=== PATIENT | female | born 1935 | race Hispanic/Latino ===

== ENCOUNTER 2018-04-11 13:35 | Inpatient (IN) | payer MEDICARE ==
[2018-04-11 13:47] VITALS: BMI 29.2
--- NOTE | 2018-04-11 14:29 | ED PDOC ---
HPI: Altered Mental Status Time Seen by Provider: 04/11/18 13:42 Chief Complaint (Nursing): Altered Mental Status Chief Complaint (Provider): Altered Mental Status History Per: Family Onset/Duration Of Symptoms: Unknown Current Symptoms Are (Timing): Still Present Description Of Symptoms: Not At Baseline Additional Complaint(s): 82 y/o female with a PMHx of HTN, CHF, COPD, Asthma, Bronchitis, Pneumonia, CKD, Emphysema and Gall Bladder Disease brought in by EMS from home where she lives alone for evaluation of an altered mental status, onset unknown. Patient is jackie cline visited by her nieces a few times a week. Family state they last visited her on Thursday when she appeared to be acting normally. Family report patient was seen by her PMD on Thursday at home and appeared normal. Family state one niece visited her earlier today and saw her sitting on the couch having wet herself and appeared to have a dry mouth and be confused. Family report that is not normal and patient was not at her baseline. Patient was brought here for further evaluation. The patient herself denies any complaints except having pain to her feet bilaterally. Patient normally has medicated patches of which she cuts her self and applies to the foot. Patient appeared awake, alert and is usually oriented to time. However, patient believed today was Thursday and she is unsure of what the year is. Family state that is new. Patient does however know who her PMD is and the name of her pharmacy. Patient appeared to have good buttermaker continuous churn memory. Otherwise, patient denies any other pain or symptoms including cough, shortness of breath and abdominal pain. PMD: Ishmael Ho Past Medical History Reviewed: Historical Data, Nursing Documentation, Vital Signs Vital Signs: Last Vital Signs Temp 99.4 F 04/11/18 13:46 Pulse 98 H 04/11/18 14:19 Resp 20 04/11/18 14:19 BP 135/68 04/11/18 14:19 Pulse Ox 98 04/11/18 14:19 - Medical History PMH: Arthritis, Asthma, Bronchitis, CHF, COPD, Emphysema, Gall Bladder Disease (cholecystectomy), HTN, Hypercholesterolemia, Pneumonia, Chronic Kidney Disease Denies: Alzheimer's Disease, Anemia, Anxiety, Bipolar Disorder, Cardia Arrhythmia, Crohn's Disease, Dementia, Depression, Diverticulitis, Fibromyalgia, Fractures, HIV, Hyperthyroidism, Hypothyroidism, Kidney Stones, Migraine, Mitral Valve Prolapse, Osteoporosis, Pancreatitis, Paranoia, Parkinson's Disease, Peripheral Edema, Post Traumatic Stress Disorder, Schizophrenia, Seizures, Sickle Cell Disease, Sexually Transmitted Disease, TIA Comment Only: Sleep Apnea (unsure) - Surgical History Surgical History: Appendectomy (unsure), Cholecystectomy Denies: Coronary Stent, Pacemaker - Family History Family History: States: No Known Family Hx - Home Medications Home Medications: Ambulatory Orders Medication Instructions Recorded Albuterol/Ipratropium [Duoneb 3 1 vial IH Q6H 12/23/17 mg/0.5 mg (3 ml) UD] Colchicine [Colcrys] 1 tab PO BID 12/23/17 Ergocalciferol [Drisdol 50,000 1 cap PO Q7D 12/23/17 Intl Units Cap] Esomeprazole Magnesium [Nexium] 1 cap PO DAILY 12/23/17 Fluticasone/Salmeterol 250/50 1 puff IH BID 12/23/17 [Advair Diskus 250/50] Nebivolol [Bystolic] 1 tab PO DAILY 12/23/17 Potassium Chloride [K-Dur 20 mEq 40 meq PO DAILY 12/23/17 ER Tab] hydroCHLOROthiazide [Hydrodiuril] 1 tab PO DAILY 12/23/17 Acetaminophen [Tylenol 325mg tab] 650 mg PO Q4H PRN 30 Days tab 12/28/17 Budesonide [Pulmicort Respules] 0.5 mg IH [id number] 30 Days neb 12/28/17 Ferrous Gluconate [Fergon] 324 mg PO TID 30 Days tab 12/28/17 Vitamin B Complex/Vit C/Folic 1 tab PO 0800 30 Days tab 12/28/17 [Nephro-Daniela] Diclofenac [Diclofenac Sodium] 25 mg PO DAILY 04/11/18 - Allergies Allergies/Adverse Reactions: Allergies Allergy/AdvReac Type Severity Reaction Status Date / Time shellfish derived Allergy RASH Verified 04/11/18 13:48 Sulfa (Sulfonamide Allergy ITCHING Verified 04/11/18 13:48 Antibiotics) Review of Systems ROS Statement: Except As Marked, All Systems Reviewed And Found Negative Respiratory: Negative for: Cough, Shortness of Breath Gastrointestinal: Negative for: Abdominal Pain Musculoskeletal: Positive for: Foot Pain (bilaterally). Negative for: Neck Pain, Shoulder Pain, Arm Pain, Back Pain, Hand Pain, Leg Pain Neurological: Positive for: Altered Mental Status Physical Exam - Reviewed Nursing Documentation Reviewed: Yes Vital Signs Reviewed: Yes - Physical Exam Appears: Positive for: No Acute Distress (odor - Due to patient wetting herself, urine smells like that of a UTI.) Head Exam: Positive for: ATRAUMATIC, NORMOCEPHALIC Skin: Positive for: Normal Color, Warm, Dry Eye Exam: Positive for: Normal appearance, EOMI, PERRL ENT: Positive for: Other (dry mucous membrane with dry secretions noted inside) Neck: Positive for: Normal, Painless ROM, Supple Cardiovascular/Chest: Positive for: Regular Rate, Rhythm. Negative for: Murmur Respiratory: Positive for: Other (tachypnea). Negative for: Respiratory Distress Gastrointestinal/Abdominal: Positive for: Normal Exam, Soft. Negative for: Tenderness Extremity: Positive for: Normal ROM, Other (motor strength equal in all extremit ies bilaterally) Neurologic/Psych: Positive for: Alert, Oriented. Negative for: Motor/Sensory Deficits - Laboratory Results Result Diagrams: 04/11/18 14:30 04/11/18 14:30 - ECG O2 Sat by Pulse Oximetry: 98 (RA) Pulse Ox Interpretation: Normal Medical Decision Making Medical Decision Making: Time: 1413 Impression: UTI causing dehydration and AMS Plan: -- VBG -- EKG -- CMP -- CBC with Differentials -- CXR Portable -- Sodium Chloride 0.9% IV 150 mls/hr -- Rocephin 1 gm Sodium Chloride 0.9% 100 ml IVPB -- Blood Culture -- Urine Culture -- Licensed Pharmacist -- IV Insertion -- Urinary Catheter Insertion -- Urinalysis Ishmael Ho HTN, CHF, COPD, Asthma, Bronchitis, Pneumonia, CKD, Emphysema and Gall Bladder Disease ___ Scribe Attestation: Documented by Ariela Boone, acting as a scribe for Nel Ashley MD. Provider Scribe Attestation: All medical record entries made by the Scribe were at my direction and personally dictated by me. I have reviewed the chart and agree that the record accurately reflects my personal performance of the history, physical exam, medical decision making, and the department course for this patient. I have also personally directed, reviewed, and agree with the discharge instructions and disposition. patient with evidence of infection (likely urinary) given the elevated WBC's and also dehydration. will admit. Disposition - Clinical Impression Clinical Impression: Altered mental status, Dehydration - Patient ED Disposition Is Patient to be Admitted: Yes Doctor Will See Patient In The: Hospital - Disposition Disposition: Transfer of Care Disposition Time: 15:10 Condition: FAIR Forms: [employer] (Angolan) - Pt Status Changed To: Hospital Disposition Of: Inpatient - Admit Certification Admit to Inpatient:: After my assessment, the patient will require hospitalization for at least two midnights. This is because of the severity of symptoms shown, intensity of services needed, and/or the medical risk in this pa tient being treated as an outpatient.
--- NOTE | 2018-04-11 14:35 | RAD ---
Date of service: 04/11/2018 HISTORY: Sepsis Patient COMPARISON: No prior. FINDINGS: LUNGS: No active pulmonary disease. PLEURA: No significant pleural effusion identified, no pneumothorax apparent. CARDIOVASCULAR: No atherosclerotic calcification present Normal. OSSEOUS STRUCTURES: No significant abnormalities. VISUALIZED UPPER ABDOMEN: Normal. OTHER FINDINGS: None. IMPRESSION: No active disease.
[2018-04-11] MEDS ORDERED: cefTRIAXone (Rocephin) 1 gm Inj ONE (14:44)
[2018-04-11 14:46] LABS: VENOUS BLOOD GAS BASE EXCESS 5.1 mmol/L (0.0-2.0); VENOUS BLOOD GAS PCO2 47 mmHg (40-60); VENOUS BLOOD GAS PO2 43 mm/Hg (30-55); VENOUS BLOOD PH 7.42 (7.32-7.43)
[2018-04-11] MEDS: Sodium Chloride 0.9% 1,000 ML IV SCH ×3 (14:48→21:06)
[2018-04-11 14:54] LABS: ALB/GLOB RATIO 0.9 (1.0-2.1); ALBUMIN 3.7 g/dL (3.5-5.0); CALCIUM 9.8 mg/dL (8.4-10.2)
[2018-04-11 14:55] LABS: BASO # 0.1 K/uL (0.0-0.2); BASO % 0.7 % (0.0-2.0); LYMPH # 2.5 K/uL (1.0-4.3); LYMPH % 12.7 % (20.0-40.0); MEAN CELL VOLUME 91.2 fl (81.0-99.0); MEAN CORPUSCULAR HEMOGLOBIN 30.4 pg (27.0-31.0); MEAN CORPUSCULAR HGB CONC 33.3 g/dL (33.0-37.0); MEAN PLATELET VOLUME 10.6 fl (7.2-11.7); MONO # 2.8 K/uL (0.0-0.8); NEUT # 14.4 K/uL (1.8-7.0); NEUT % 72.6 % (50.0-75.0); RBC 4.6 Mil/uL (3.80-5.20); RED CELL DISTRIBUTION WIDTH 15.3 % (11.5-14.5); WHITE BLOOD COUNT 19.9 K/uL (4.8-10.8)
[2018-04-11 15:08] LABS: URINE BILIRUBIN NEGATIVE (NEGATIVE); URINE CLARITY CLOUDY (Clear); URINE COLOR YELLOW (YELLOW); URINE GLUCOSE (UA) NEGATIVE (NEGATIVE)
[2018-04-11 15:09] LABS: URINE BLOOD NEGATIVE (NEGATIVE); URINE LEUKOCYTE ESTERASE LARGE Leu/uL (Negative); URINE PROTEIN 100 mg/dL (NEGATIVE)
[2018-04-11 15:10] LABS: SQUAMOUS EPITHIAL 1 /hpf (0-5); URINE BACTERIA FEW (<OCC)
--- NOTE | 2018-04-11 15:24 | CP.PCM.HP ---
<Gabbi Oneill - Last Filed: 04/11/18 17:14> History of Present Illness - History of Present Illness History of Present Illness: History obtained from chart, family not at bedside. Pt is an 82 yo F with PMH of Asthma, COPD, DM-II, Gout, GERD, HTN and CKD . Pt was found at home by niece this AM appeared to have altered mental status dry mouth and was incontinent/smelled like urine, pt lives alone, family last visited her Thursday and stated she was acting normally at that time. Pt reports she has foot pain and puts foam patches on her feet. Denies fever, chills, headaches, SOB, chest pain, N/V/D/C, dysuria. On evaluation in ED pt dehydrated AAO x2, no in acute distress code status: Spoke with next of kin over phone, pt is DNR/DNI PMH:Asthma, COPD, DM-II, Gout, GERD, CKD, HTN Allergies: Sulfa, Shellfish PSH: cholecystectomy, appendectomy, cataract removal Fam Hx: Denies relevant family hx Soc Hx: Denies tobacco/alcohol/illicits/IVDA PMD: Ishmael Ho ED:CBC leukopcytosi, elevated lactic acid Rocephin 1 gm, Blood Cx, Urine Cx, Plastic Manager, Urinary Catheter Insertion, U/A Present on Admission - Present on Admission Any Indicators Present on Admission: No History of DVT/PE: No History of Uncontrolled Diabetes: No Urinary Catheter: No Decubitus Ulcer Present: No Review of Systems - Review of Systems Systems not reviewed;Unavailable: Altered Mental Status - Genitourinary Genitourinary: Urinary Incontinence Past Patient History - Infectious Disease Hx of Infectious Diseases: None - Tetanus Immunizations Tetanus Immunization: Unknown - Past Social History Smoking Status: Former Smoker - CARDIAC Hx Cardia Arrhythmia: No Hx Congestive Heart Failure: Yes Hx Hypercholesterolemia: Yes Hx Hypertension: Yes Hx Mitral Valve Prolapse: No Hx Pacemaker: No Hx Peripheral Edema: No - PULMONARY Hx Asthma: Yes Hx Bronchitis: Yes Hx Chronic Obstructive Pulmonary Disease (COPD): Yes Hx Emphysema: Yes Hx Pneumonia: Yes Hx Sleep Apnea: (unsure) - NEUROLOGICAL Hx Alzheimer's Disease: No Hx Dementia: No Hx Migraine: No Hx Parkinson's Disease: No Hx Seizures: No Hx Transient Ischemic Attacks (TIA): No - HEENT Hx Cataracts: Yes (bilateral cataract extraction,august and september) - RENAL Hx Chronic Kidney Disease: Yes Hx Kidney Stones: No - ENDOCRINE/METABOLIC Hx Hyperthyroidism: No Hx Hypothyroidism: No - HEMATOLOGICAL/ONCOLOGICAL Hx Anemia: No Hx Human Immunodeficiency Virus (HIV): No Hx Sickle Cell Disease: No - INTEGUMENTARY Hx Dermatological Problems: No Hx Basil Cell: No Hx Eczema: No Hx Melanoma: No Hx Psoriasis: No Hx Squamous Cell: No - MUSCULOSKELETAL/RHEUMATOLOGICAL Hx Arthritis: Yes Hx Fractures: No Hx Osteoporosis: No - GASTROINTESTINAL Hx Crohn's Disease: No Hx Diverticulitis: No Hx Gall Bladder Disease: Yes (cholecystectomy) Hx Pancreatitis: No - GENITOURINARY/GYNECOLOGICAL Hx Sexually Transmitted Disorders: No - PSYCHIATRIC Hx Anxiety: No Hx Bipolar Disorder: No Hx Depression: No Hx Paranoia: No Hx Post Traumatic Stress Disorder: No Hx Schizophrenia: No - SURGICAL HISTORY Hx Appendectomy: Yes (unsure) Hx Cholecystectomy: Yes Hx Coronary Stent: No Meds Allergies/Adverse Reactions: Allergies Allergy/AdvReac Type Severity Reaction Status Date / Time shellfish derived Allergy RASH Verified 04/11/18 13:48 Sulfa (Sulfonamide Allergy ITCHING Verified 04/11/18 13:48 Antibiotics) Physical Exam - Constitutional Appears: Non-toxic, No Acute Distress, Confused - Head Exam Head Exam: ATRAUMATIC, NORMAL INSPECTION, NORMOCEPHALIC - Eye Exam Eye Exam: EOMI - ENT Exam ENT Exam: Mucous Membranes Dry - Respiratory Exam Respiratory Exam: Clear to Auscultation Bilateral. absent: Rales, Rhonchi, Wheezes - Cardiovascular Exam Cardiovascular Exam: Tachycardia, +S1, +S2 - GI/Abdominal Exam GI & Abdominal Exam: Normal Bowel Sounds, Soft. absent: Tenderness - Extremities Exam Extremities exam: Positive for: normal inspection (Wearing foam patches on feet B/L) - Back Exam Back exam: CVA tenderness (L). absent: CVA tenderness (R) - Neurological Exam Neurological exam: Alert (AAOx2) - Skin Skin Exam: Normal Color Results - Vital Signs Recent Vital Signs: Last Vital Signs Temp 99.4 F 04/11/18 13:46 Pulse 98 H 04/11/18 14:19 Resp 20 04/11/18 14:19 BP 135/68 04/11/18 14:19 Pulse Ox 98 04/11/18 15:11 - Labs Result Diagrams: 04/11/18 14:30 04/11/18 14:30 Labs: Laboratory Results - last 24 hr 04/11/18 04/11/18 04/11/18 14:30 14:30 14:30 WBC 19.9 H RBC 4.60 Hgb 14.0 Hct 42.0 MCV 91.2 MCH 30.4 MCHC 33.3 RDW 15.3 H Plt Count 173 MPV 10.6 Neut % (Auto) 72.6 Lymph % (Auto) 12.7 L [place] % (Auto) 14.0 H Eos % (Auto) 0.0 Baso % (Auto) 0.7 Neut # (Auto) 14.4 H Lymph # (Auto) 2.5 [place] # (Auto) 2.8 H Eos # (Auto) 0.0 Baso # (Auto) 0.1 pO2 VBG pH VBG pCO2 VBG HCO3 VBG Total CO2 VBG O2 Sat (Calc) VBG Base Excess VBG Potassium Glucose Lactate FiO2 Sodium 141 Potassium 3.4 L Chloride 97 L Carbon Dioxide 28 Anion Gap 19 BUN 30 H Creatinine 1.5 H Est GFR ( Amer) 40 Est GFR (Non-Af Amer) 33 Random Glucose 198 H Calcium 9.8 Total Bilirubin 1.6 H AST 22 ALT 9 Alkaline Phosphatase 117 Total Protein 7.8 Albumin 3.7 Globulin 4.1 H Albumin/Globulin Ratio 0.9 L Venous Blood Potassium Urine Color Yellow Urine Clarity Cloudy Urine pH 8.0 Ur Specific [place] 1.023 Urine Protein 100 Urine Glucose (UA) Negative Urine Ketones Trace Urine Blood Negative Urine Nitrate Negative Urine Bilirubin Negative Urine Urobilinogen 1.0 Ur Leukocyte Esterase Large Urine RBC (Auto) 3 Urine Microscopic WBC 642 H Ur Squamous Epith Cells 1 Urine Bacteria Few H 04/11/18 14:42 WBC RBC Hgb Hct MCV MCH MCHC RDW Plt Count MPV Neut % (Auto) Lymph % (Auto) [place]arton % (Auto) Eos % (Auto) Baso % (Auto) Neut # (Auto) Lymph # (Auto) [place] # (Auto) Eos # (Auto) Baso # (Auto) pO2 43 VBG pH 7.42 VBG pCO2 47 VBG HCO3 28.4 VBG Total CO2 31.9 H VBG O2 Sat (Calc) 84.0 H VBG Base Excess 5.1 H VBG Potassium 3.3 L Glucose 198 H Lactate 2.2 H FiO2 21.0 Sodium 137.0 Potassium Chloride 101.0 Carbon Dioxide Anion Gap BUN Creatinine Est GFR ( Amer) Est GFR (Non-Af Amer) Random Glucose Calcium Total Bilirubin AST ALT Alkaline Phosphatase Total Protein Albumin Globulin Albumin/Globulin Ratio Venous Blood Potassium 3.3 L Urine Color Urine Clarity Urine pH Ur Specific [place] Urine Protein Urine Glucose (UA) Urine Ketones Urine Blood Urine Nitrate Urine Bilirubin Urine Urobilinogen Ur Leukocyte Esterase Urine RBC (Auto) Urine Microscopic WBC Ur Squamous Epith Cells Urine Bacteria Assessment & Plan - Assessment and Plan (Free Text) Assessment: Pt is an 82 yo F with PMH of Asthma, COPD, DM-II, Gout, GERD, HTN and CKD was found at home by family altered from baseline with incontinence lives alone admitted due to AMS, dehydration, and UTI Sepsis 2/2 UTI SIRS ( leukocytosis,tachycarda, + UTI) s/p Rocephin 1gm IV ED c/w rocephin 1 g daily CXR- no active disease, EKG-NSR F/u CMP, CBC, Lactic acid, blood cx, urine cx in AM Pyelonephritis +CVAT left +UA Rocephin 1gm IV QD (Day1) Prerenal Azotemia acute c/w hydration 110ml/hr Dehydration acute c/w hydration 110ml/hr AMS 2/2 UTI and sepsis acute continue to monitor CKD stage 3 chronic GFR 33 HTN chronic, controlled c/w Bystolic tomorrow.evaluate BP overnight Diabetes chronic HGA1C 6.6 (2016) f/u A1c COPD chronic Diet Diabetic DVT PPX Lovenox in AM Code DNR/DNI- spoke with next of kin <Kathia Lee - Last Filed: 04/12/18 09:24> Results - Vital Signs Recent Vital Signs: Last Vital Signs Temp 97.5 F L 04/12/18 08:20 Pulse 80 04/12/18 08:20 Resp 19 04/12/18 08:20 BP 120/70 04/12/18 08:20 Pulse Ox 96 04/12/18 08:20 - Labs Result Diagrams: 04/12/18 06:55 04/12/18 06:55 Labs: Laboratory Results - last 24 hr 04/11/18 04/11/18 04/11/18 14:30 14:30 14:30 WBC 19.9 H RBC 4.60 Hgb 14.0 Hct 42.0 MCV 91.2 MCH 30.4 MCHC 33.3 RDW 15.3 H Plt Count 173 MPV 10.6 Neut % (Auto) 72.6 Lymph % (Auto) 12.7 L [place] % (Auto) 14.0 H Eos % (Auto) 0.0 Baso % (Auto) 0.7 Neut # (Auto) 14.4 H Lymph # (Auto) 2.5 [place] # (Auto) 2.8 H Eos # (Auto) 0.0 Baso # (Auto) 0.1 pO2 VBG pH VBG pCO2 VBG HCO3 VBG Total CO2 VBG O2 Sat (Calc) VBG Base Excess VBG Potassium Glucose Lactate FiO2 Sodium 141 Potassium 3.4 L Chloride 97 L Carbon Dioxide 28 Anion Gap 19 BUN 30 H Creatinine 1.5 H Est GFR ( Amer) 40 Est GFR (Non-Af Amer) 33 POC Glucose (mg/dL) Random Glucose 198 H Lactic Acid Calcium 9.8 Total Bilirubin 1.6 H AST 22 ALT 9 Alkaline Phosphatase 117 Total Protein 7.8 Albumin 3.7 Globulin 4.1 H Albumin/Globulin Ratio 0.9 L Venous Blood Potassium Urine Color Yellow Urine Clarity Cloudy Urine pH 8.0 Ur Specific [place] 1.023 Urine Protein 100 Urine Glucose (UA) Negative Urine Ketones Trace Urine Blood Negative Urine Nitrate Negative Urine Bilirubin Negative Urine Urobilinogen 1.0 Ur Leukocyte Esterase Large Urine RBC (Auto) 3 Urine Microscopic WBC 642 H Ur Squamous Epith Cells 1 Urine Bacteria Few H 04/11/18 04/11/18 04/11/18 14:42 16:28 22:52 WBC RBC Hgb Hct MCV MCH MCHC RDW Plt Count MPV Neut % (Auto) Lymph % (Auto) [place] % (Auto) Eos % (Auto) Baso % (Auto) Neut # (Auto) Lymph # (Auto) [place] # (Auto) Eos # (Auto) Baso # (Auto) pO2 43 VBG pH 7.42 VBG pCO2 47 VBG HCO3 28.4 VBG Total CO2 31.9 H VBG O2 Sat (Calc) 84.0 H VBG Base Excess 5.1 H VBG Potassium 3.3 L Glucose 198 H Lactate 2.2 H FiO2 21.0 Sodium 137.0 Potassium Chloride 101.0 Carbon Dioxide Anion Gap BUN Creatinine Est GFR ( Amer) Est GFR (Non-Af Amer) POC Glucose (mg/dL) 146 H 129 H Random Glucose Lactic Acid Calcium Total Bilirubin AST ALT Alkaline Phosphatase Total Protein Albumin Globulin Albumin/Globulin Ratio Venous Blood Potassium 3.3 L Urine Color Urine Clarity Urine pH Ur Specific [place] Urine Protein Urine Glucose (UA) Urine Ketones Urine Blood Urine Nitrate Urine Bilirubin Urine Urobilinogen Ur Leukocyte Esterase Urine RBC (Auto) Urine Microscopic WBC Ur Squamous Epith Cells Urine Bacteria 04/12/18 04/12/18 04/12/18 05:24 06:55 06:55 WBC 13.0 H RBC 4.07 Hgb 12.6 Hct 38.2 MCV 93.7 D MCH 30.8 MCHC 32.9 L RDW 15.3 H Plt Count 135 MPV 10.9 Neut % (Auto) 67.2 Lymph % (Auto) 20.0 [place] % (Auto) 12.3 H Eos % (Auto) 0.3 Baso % (Auto) 0.2 Neut # (Auto) 8.7 H Lymph # (Auto) 2.6 [place] # (Auto) 1.6 H Eos # (Auto) 0.0 Baso # (Auto) 0.0 pO2 VBG pH VBG pCO2 VBG HCO3 VBG Total CO2 VBG O2 Sat (Calc) VBG Base Excess VBG Potassium Glucose Lactate FiO2 Sodium 139 Potassium 3.9 Chloride 100 Carbon Dioxide 28 Anion Gap 15 BUN 35 H Creatinine 1.3 H Est GFR ( Amer) 47 Est GFR (Non-Af Amer) 39 POC Glucose (mg/dL) 102 Random Glucose 113 H Lactic Acid Calcium 9.3 Total Bilirubin 1.1 AST 21 ALT 17 Alkaline Phosphatase 98 Total Protein 6.9 Albumin 3.2 L Globulin 3.8 Albumin/Globulin Ratio 0.8 L Venous Blood Potassium Urine Color Urine Clarity Urine pH Ur Specific [place] Urine Protein Urine Glucose (UA) Urine Ketones Urine Blood Urine Nitrate Urine Bilirubin Urine Urobilinogen Ur Leukocyte Esterase Urine RBC (Auto) Urine Microscopic WBC Ur Squamous Epith Cells Urine Bacteria 04/12/18 06:55 WBC RBC Hgb Hct MCV MCH MCHC RDW Plt Count MPV Neut % (Auto) Lymph % (Auto) [place] % (Auto) Eos % (Auto) Baso % (Auto) Neut # (Auto) Lymph # (Auto) [place] # (Auto) Eos # (Auto) Baso # (Auto) pO2 VBG pH VBG pCO2 VBG HCO3 VBG Total CO2 VBG O2 Sat (Calc) VBG Base Excess VBG Potassium Glucose Lactate FiO2 Sodium Potassium Chloride Carbon Dioxide Anion Gap BUN Creatinine Est GFR ( Amer) Est GFR (Non-Af Amer) POC Glucose (mg/dL) Random Glucose Lactic Acid 1.1 Calcium Total Bilirubin AST ALT Alkaline Phosphatase Total Protein Albumin Globulin Albumin/Globulin Ratio Venous Blood Potassium Urine Color Urine Clarity Urine pH Ur Specific [place] Urine Protein Urine Glucose (UA) Urine Ketones Urine Blood Urine Nitrate Urine Bilirubin Urine Urobilinogen Ur Leukocyte Esterase Urine RBC (Auto) Urine Microscopic WBC Ur Squamous Epith Cells Urine Bacteria Attending/Attestation - Attestation I have personally seen and examined this patient.: Yes I have fully participated in the care of the patient.: Yes I have reviewed all pertinent clinical information: Yes Notes (Text): 04/12/18 09:24 agree with findings and plan as above
[2018-04-11] MEDS ORDERED: Influenza Vaccine (5 YR UP)/PF 60 MCG/0.5 ML SYR IM ONE ×2 (18:27→18:45)
[2018-04-11] MEDS ORDERED: Influenza Vaccine 60 mcg/0.5 mL SYR (4YR UP) IM ONE (18:45)
[2018-04-11] MEDS ORDERED: Potassium Chloride 20 mEq ER Tab PO ONE (19:00)
--- NOTE | 2018-04-11 20:27 | CARD ---
APPROVED REPORT Date of service: 04/11/2018 EKG Measurement Heart [id number] <Conclusion> Normal sinus rhythm Normal ECG
[2018-04-11] MEDS ORDERED: Nystatin 100,000 Units/ml Oral Susp 5 ml UD PO SCH (22:00)
[2018-04-12 07:15] LABS: BASO % 0.2 % (0.0-2.0); EOS % 0.3 % (0.0-4.0); HEMOGLOBIN 12.6 g/dL (12.0-16.0); LYMPH # 2.6 K/uL (1.0-4.3); MEAN CELL VOLUME 93.7 fl (81.0-99.0); MEAN CORPUSCULAR HEMOGLOBIN 30.8 pg (27.0-31.0); MEAN CORPUSCULAR HGB CONC 32.9 g/dL (33.0-37.0); MEAN PLATELET VOLUME 10.9 fl (7.2-11.7); MONO # 1.6 K/uL (0.0-0.8); MONO % 12.3 % (0.0-10.0); NEUT # 8.7 K/uL (1.8-7.0); NEUT % 67.2 % (50.0-75.0); NRBC % 0.1 % (0.0-0.0); RBC 4.07 Mil/uL (3.80-5.20); RED CELL DISTRIBUTION WIDTH 15.3 % (11.5-14.5)
[2018-04-12 07:41] LABS: ALB/GLOB RATIO 0.8 (1.0-2.1); ALBUMIN 3.2 g/dL (3.5-5.0); CALCIUM 9.3 mg/dL (8.4-10.2)
[2018-04-12] MEDS: Sodium Chloride 0.9% 1,000 ML IV SCH ×2 (09:59→15:19)
[2018-04-12] MEDS: Enoxaparin 30 mg Syringe SC SCH (10:01)
--- NOTE | 2018-04-12 12:18 | CP.PCM.PN ---
<MaurolucianaGabbi - Last Filed: 04/12/18 12:53> Subjective - Date & Time of Evaluation Date of Evaluation: 04/12/18 Time of Evaluation: 09:00 - Subjective Subjective: Pt is an 82 yo F with PMH of Asthma, COPD, DM-II, Gout, GERD, HTN and CKD admitted due to AMS, dehydration, and UTI. Pt doing well, more coherent today, Oriented to person, place and time. Discussed code status with her pt understands and continues to be DNR/DNI. Denies fevers, chills, headache, blurry vision, N/V/D/C, or dysuria. Objective - Vital Signs/Intake and Output Vital Signs (last 24 hours): Temp Pulse Resp BP Pulse Ox 97.5 F L 96 H 19 97/65 L 98 04/12/18 08:20 04/12/18 11:09 04/12/18 08:20 04/12/18 10:03 04/12/18 11:09 - Medications Medications: Current Medications Acetaminophen (Tylenol 325mg Tab) 650 mg PO Q6 PRN PRN Reason: Pain, Mild (1-3) Acetaminophen (Tylenol 325mg Tab) 650 mg PO Q6 PRN PRN Reason: Fever >100.4 F Clotrimazole (Mycelex Uri) 10 mg MT 5XD [facility] Last Admin: 04/12/18 10:04 Dose: 10 mg Enoxaparin Sodium (Lovenox) 30 mg SC DAILY [facility]; Protocol Last Admin: 04/12/18 10:01 Dose: 30 mg Sodium Chloride (Sodium Chloride 0.9%) 1,000 mls @ 150 mls/hr IV .Q6H40M [facility] Last Admin: 04/12/18 09:59 Dose: 150 mls/hr Ceftriaxone Sodium 1 gm/ (Sodium Chloride) 100 mls @ 100 mls/hr IVPB DAILY [facility]; Protocol Last Admin: 04/12/18 10:04 Dose: 100 mls/hr Metoprolol Tartrate (Lopressor) 12.5 mg PO BID [facility] Last Admin: 04/12/18 10:03 Dose: Not Given Ondansetron HCl (Zofran Inj) 4 mg IVP Q6 PRN PRN Reason: Nausea/Vomiting - Labs Labs: 04/12/18 06:55 04/12/18 06:55 - Constitutional Appears: Non-toxic, No Acute Distress - Head Exam Head Exam: ATRAUMATIC, NORMAL INSPECTION, NORMOCEPHALIC - Eye Exam Eye Exam: EOMI - ENT Exam ENT Exam: Mucous Membranes Moist, Normal Oropharynx (dry mouth resolving ) - Respiratory Exam Respiratory Exam: Clear to Ausculation Bilateral. absent: Rales, Rhonchi, Wheezes - Cardiovascular Exam Cardiovascular Exam: RRR, +S1, +S2 - GI/Abdominal Exam GI & Abdominal Exam: Soft, Normal Bowel Sounds. absent: Tenderness - Extremities Exam Extremities Exam: Normal Inspection (No ulcers B/L feet ) - Neurological Exam Neurological Exam: Alert, Awake, Oriented x3 Assessment and Plan - Assessment and Plan (Free Text) Assessment: Pt is an 82 yo F with PMH of Asthma, COPD, DM-II, Gout, GERD, HTN and CKD was found at home by family altered from baseline with incontinence lives alone admitted due to AMS, dehydration, and UTI AMS 2/2 UTI and sepsis acute, resolving Urine Cx- gram negative rods s/p Rocephin 1gm IV ED c/w Rocephin 1gm IV QD (Day2) CXR- no active disease, EKG-NSR F/u CBC, BMP and blood cx in AM UTI/Pyelonephritis Leukocytosis trending down 13.0, Afebrile +UA, lactic acid 1.1 + Urine Cx- gram negative rods c/w Rocephin 1gm IV QD (Day2) Prerenal Azotemia acute c/w hydration 150ml/hr Dehydration acute c/w hydration 150ml/hr dry mouth resolving-clotrimazole mesha CKD stage 3 chronic GFR 33 HTN chronic, controlled c/w Lopressor Diabetes chronic, controlled HGA1C 6.1 (04/12/18) COPD chronic, controlled 2L NC Diet Diabetic DVT PPX Lovenox 30mg SQ Code DNR/DNI <Kathia Lee - Last Filed: 04/12/18 14:27> Objective - Vital Signs/Intake and Output Vital Signs (last 24 hours): Temp Pulse Resp BP Pulse Ox 97.5 F L 96 H 19 97/65 L 98 04/12/18 08:20 04/12/18 11:09 04/12/18 08:20 04/12/18 10:03 04/12/18 11:09 - Medications Medications: Current Medications Acetaminophen (Tylenol 325mg Tab) 650 mg PO Q6 PRN PRN Reason: Pain, Mild (1-3) Acetaminophen (Tylenol 325mg Tab) 650 mg PO Q6 PRN PRN Reason: Fever >100.4 F Clotrimazole (Mycelex Uri) 10 mg MT 5XD [facility] Last Admin: 04/12/18 10:04 Dose: 10 mg Enoxaparin Sodium (Lovenox) 30 mg SC DAILY [facility]; Protocol Last Admin: 04/12/18 10:01 Dose: 30 mg Sodium Chloride (Sodium Chloride 0.9%) 1,000 mls @ 150 mls/hr IV .Q6H40M [facility] Last Admin: 04/12/18 09:59 Dose: 150 mls/hr Ceftriaxone Sodium 1 gm/ (Sodium Chloride) 100 mls @ 100 mls/hr IVPB DAILY [facility]; Protocol Last Admin: 04/12/18 10:04 Dose: 100 mls/hr Metoprolol Tartrate (Lopressor) 12.5 mg PO BID [facility] Last Admin: 04/12/18 10:03 Dose: Not Given Ondansetron HCl (Zofran Inj) 4 mg IVP Q6 PRN PRN Reason: Nausea/Vomiting - Labs Labs: 04/12/18 06:55 04/12/18 06:55 Attending/Attestation - Attestation I have personally seen and examined this patient.: Yes I have fully participated in the care of the patient.: Yes I have reviewed all pertinent clinical information, including history, physical exam and plan: Yes Notes (Text): 04/12/18 14:26 agree with findings and plan as above. mentation significantly improved this morning. awaiting sensitivities.
[2018-04-13] MEDS: Sodium Chloride 0.9% 1,000 ML IV SCH ×2 (01:41→08:50)
[2018-04-13 06:14] LABS: BASO % 0.4 % (0.0-2.0); EOS # 0.1 K/uL (0.0-0.7); EOS % 1.2 % (0.0-4.0); HEMOGLOBIN 11.8 g/dL (12.0-16.0); LYMPH # 2.5 K/uL (1.0-4.3); LYMPH % 25.3 % (20.0-40.0); MEAN CORPUSCULAR HEMOGLOBIN 31.2 pg (27.0-31.0); MEAN CORPUSCULAR HGB CONC 33.9 g/dL (33.0-37.0); MEAN PLATELET VOLUME 10.5 fl (7.2-11.7); MONO # 1.2 K/uL (0.0-0.8); NEUT % 61.1 % (50.0-75.0); NRBC % 0.2 % (0.0-0.0); RBC 3.78 Mil/uL (3.80-5.20); RED CELL DISTRIBUTION WIDTH 14.9 % (11.5-14.5); WHITE BLOOD COUNT 9.8 K/uL (4.8-10.8)
[2018-04-13 06:30] LABS: CALCIUM 8.7 mg/dL (8.4-10.2)
[2018-04-13] MEDS ORDERED: Potassium Chloride 20 mEq ER Tab PO ONE (08:08)
[2018-04-13] MEDS: Enoxaparin 30 mg Syringe SC SCH (08:43)
--- NOTE | 2018-04-13 11:34 | CP.PCM.PN ---
<Mirela Queen - Last Filed: 04/13/18 13:47> Subjective - Date & Time of Evaluation Date of Evaluation: 04/13/18 Time of Evaluation: 08:10 - Subjective Subjective: Patient seen and examined bedside sitting on bed, reports feeling better, AAO x3, denies dysuria, chest pain, SOB. Hemodynamically stable better hydrated. no overnight events. urine cx proteus resistant to ceftriaxone, will switch to zosyn. Objective - Vital Signs/Intake and Output Vital Signs (last 24 hours): Temp Pulse Resp BP Pulse Ox 97.7 F 82 18 137/85 95 04/13/18 07:58 04/13/18 08:42 04/13/18 07:58 04/13/18 08:42 04/13/18 07:58 - Medications Medications: Current Medications Acetaminophen (Tylenol 325mg Tab) 650 mg PO Q6 PRN PRN Reason: Pain, Mild (1-3) Acetaminophen (Tylenol 325mg Tab) 650 mg PO Q6 PRN PRN Reason: Fever >100.4 F Clotrimazole (Mycelex Uri) 10 mg MT 5XD [facility] Last Admin: 04/13/18 08:43 Dose: 10 mg Enoxaparin Sodium (Lovenox) 30 mg SC DAILY [facility]; Protocol Last Admin: 04/13/18 08:43 Dose: 30 mg Ceftriaxone Sodium 1 gm/ (Sodium Chloride) 100 mls @ 100 mls/hr IVPB DAILY [facility]; Protocol Last Admin: 04/13/18 08:45 Dose: 100 mls/hr Sodium Chloride (Sodium Chloride 0.9%) 1,000 mls @ 110 mls/hr IV .Q9H6M [facility] Stop: 04/13/18 15:19 Last Admin: 04/13/18 08:50 Dose: Not Given Metoprolol Tartrate (Lopressor) 12.5 mg PO BID [facility] Last Admin: 04/13/18 08:42 Dose: 12.5 mg Ondansetron HCl (Zofran Inj) 4 mg IVP Q6 PRN PRN Reason: Nausea/Vomiting - Labs Labs: 04/13/18 05:45 04/13/18 05:45 - Constitutional Appears: No Acute Distress - Respiratory Exam Respiratory Exam: Rales (scatterred bibasal. ) - Cardiovascular Exam Cardiovascular Exam: REGULAR RHYTHM, +S1, +S2 - GI/Abdominal Exam GI & Abdominal Exam: Soft, Normal Bowel Sounds. absent: Tenderness - Neurological Exam Neurological Exam: Alert, Awake - Psychiatric Exam Psychiatric exam: Normal Affect, Normal Mood - Skin Skin Exam: Intact Assessment and Plan - Assessment and Plan (Free Text) Plan: Pt is an 82 yo F with PMH of Asthma, COPD, DM-II, Gout, GERD, HTN and CKD was found at home by family altered from baseline with incontinence lives alone admitted due to AMS, dehydration, and UTI AMS -resolved 2/2 UTI and sepsis Urine Cx proteus resist to ceftriaxone started on zosyn day 1 CXR- no active disease, EKG-NSR F/u CBC, BMP and blood cx in AM UTI/Pyelonephritis Leukocytosis resolved Urine Cx proteus resist to ceftriaxone started on zosyn day 1 Prerenal Azotemia acute resolving hydration decrease 80 ml/h Dehydration resolving c/w hydration 80/hr CKD stage 3 chronic GFR 33 HTN chronic, controlled c/w Lopressor Diabetes chronic, controlled HGA1C 6.1 (04/12/18) COPD chronic, controlled 2L NC Diet Diabetic DVT PPX Lovenox 30mg SQ Code DNR/DNI <JesusKathia - Last Filed: 04/14/18 17:38> Objective - Vital Signs/Intake and Output Vital Signs (last 24 hours): Temp Pulse Resp BP Pulse Ox 97.6 F 78 20 120/61 96 04/14/18 08:04 04/14/18 14:12 04/14/18 08:04 04/14/18 10:26 04/14/18 14:12 - Labs Labs: 04/14/18 05:40 04/14/18 05:40 Attending/Attestation - Attestation I have personally seen and examined this patient.: Yes I have fully participated in the care of the patient.: Yes I have reviewed all pertinent clinical information, including history, physical exam and plan: Yes Notes (Text): 04/14/18 17:38 Agree with findings and plan as above.
[2018-04-13] MEDS ORDERED: Sodium Chloride 0.9% 1,000 ML IV SCH (13:30)
[2018-04-13] MEDS ORDERED: Albuterol-Ipratrop 3 mg / 0.5 (3 ml) UD IH PRN (15:26)
[2018-04-13] MEDS: Piperacillin/Tazobact 3.375 GM in Sodium Chloride 0.9% 100 ML IVPB SCH ×2 (16:56→21:29)
[2018-04-13] MEDS ORDERED: Albuterol-Ipratrop 3 mg / 0.5 (3 ml) UD INH STA (18:20)
--- NOTE | 2018-04-13 18:31 | CP.PCM.PCO ---
Assessment & Plan - Assessment and Plan (Free Text) Assessment: Assessment: Pt's respirations noted to be more labored this evening. Though she denies SOB, on evaluation, she is tachypnic with faint auditory wheezing, bilateral rales at lung bases, +1 pitting edema in extremities, and noted to have intermittent wet cough. Concern for slight fluid overload vs COPD exas (mild). O2 sat 99 on 2L NC. Has hx of CKD and COPD. Plan: - IV Fluids held - Reconciled home COPD medication - Duoneb treatment x1 now and schedule q6 - Methylprednisone 125mg IV x1 - Lasix 20mg IV - Probnp ordered - Chest portable ordered - Will monitor respiratory status in 1 hour after treatment
[2018-04-13] MEDS ORDERED: Budesonide 0.5 mg/2 ml Inhal Susp UD IH SCH (18:45)
[2018-04-13] MEDS: Fluticasone-Salmeterol 250-50mcg Diskus IH SCH (20:14)
[2018-04-13] MEDS: Albuterol-Ipratrop 3 mg / 0.5 (3 ml) UD IH SCH ×2 (22:51→23:25)
[2018-04-14] MEDS: Albuterol-Ipratrop 3 mg / 0.5 (3 ml) UD IH SCH ×3 (03:03→11:09)
[2018-04-14] MEDS: Piperacillin/Tazobact 3.375 GM in Sodium Chloride 0.9% 100 ML IVPB SCH ×2 (03:31→10:31)
[2018-04-14 06:33] LABS: BASO % 0.1 % (0.0-2.0); HEMOGLOBIN 12.1 g/dL (12.0-16.0); LYMPH % 15.2 % (20.0-40.0); MEAN CELL VOLUME 93.1 fl (81.0-99.0); MEAN CORPUSCULAR HGB CONC 33.3 g/dL (33.0-37.0); MEAN PLATELET VOLUME 10.8 fl (7.2-11.7); MONO # 0.2 K/uL (0.0-0.8); MONO % 2.4 % (0.0-10.0); NEUT # 5.3 K/uL (1.8-7.0); NEUT % 82.3 % (50.0-75.0); RBC 3.92 Mil/uL (3.80-5.20); RED CELL DISTRIBUTION WIDTH 14.7 % (11.5-14.5); WHITE BLOOD COUNT 6.4 K/uL (4.8-10.8)
[2018-04-14 07:25] LABS: ALB/GLOB RATIO 0.9 (1.0-2.1); CALCIUM 8.8 mg/dL (8.4-10.2)
[2018-04-14 08:04] VITALS: BP 120/61; RESP 20; TEMP 97.6
[2018-04-14] MEDS: Enoxaparin 30 mg Syringe SC SCH (10:26)
[2018-04-14] MEDS: Fluticasone-Salmeterol 250-50mcg Diskus IH SCH (10:27)
--- NOTE | 2018-04-14 10:38 | CP.PCM.DIS ---
<Gabbi Oneill - Last Filed: 04/14/18 16:43> Provider - Provider Date of Admission: 04/11/18 15:11 Attending physician: Kathia Lee DO Primary care physician: Dr. Ishmael Ho Consults: 04/11/18 17:44 Nursing Referral for Wound Care Routine Comment: Physician Instructions: Reason For Exam: low charis score Time Spent in preparation of Discharge (in minutes): 15 Diagnosis - Discharge Diagnosis (1) Altered mental status Status: Acute Comment: resolved (2) Dehydration Status: Acute Comment: resolved, keep hydrated (3) UTI (urinary tract infection) Status: Acute Comment: Urine Cx- gram negative rods. c/w zosyn (4) CKD (chronic kidney disease) Status: Chronic Comment: GFR 47 (5) HTN (hypertension) Status: Chronic Comment: controlled, c/w home meds (6) COPD (chronic obstructive pulmonary disease) Status: Chronic Comment: Controlled. c/w nebulizers Hospital Course - Lab Results Lab Results: Micro Results 04/11/18 14:45 Blood Blood Culture - Preliminary NO GROWTH AFTER 48 HOURS 04/11/18 14:30 Urine,Catheterized Urine Culture - Final Proteus Mirabilis Most Recent Lab Values WBC 6.4 K/uL (4.8-10.8) 04/14/18 05:40 RBC 3.92 Mil/uL (3.80-5.20) 04/14/18 05:40 Hgb 12.1 g/dL (12.0-16.0) 04/14/18 05:40 Hct 36.5 % (34.0-47.0) 04/14/18 05:40 MCV 93.1 fl (81.0-99.0) 04/14/18 05:40 MCH 31.0 pg (27.0-31.0) 04/14/18 05:40 MCHC 33.3 g/dL (33.0-37.0) 04/14/18 05:40 RDW 14.7 % (11.5-14.5) H 04/14/18 05:40 Plt Count 155 K/uL (130-400) 04/14/18 05:40 MPV 10.8 fl (7.2-11.7) 04/14/18 05:40 Neut % (Auto) 82.3 % (50.0-75.0) H 04/14/18 05:40 Lymph % (Auto) 15.2 % (20.0-40.0) L 04/14/18 05:40 [place] % (Auto) 2.4 % (0.0-10.0) 04/14/18 05:40 Eos % (Auto) 0.0 % (0.0-4.0) 04/14/18 05:40 Baso % (Auto) 0.1 % (0.0-2.0) 04/14/18 05:40 Neut # (Auto) 5.3 K/uL (1.8-7.0) 04/14/18 05:40 Lymph # (Auto) 1.0 K/uL (1.0-4.3) 04/14/18 05:40 [place] # (Auto) 0.2 K/uL (0.0-0.8) 04/14/18 05:40 Eos # (Auto) 0.0 K/uL (0.0-0.7) 04/14/18 05:40 Baso # (Auto) 0.0 K/uL (0.0-0.2) 04/14/18 05:40 pO2 43 mm/Hg (30-55) 04/11/18 14:42 VBG pH 7.42 (7.32-7.43) 04/11/18 14:42 VBG pCO2 47 mmHg (40-60) 04/11/18 14:42 VBG HCO3 28.4 mmol/L 04/11/18 14:42 VBG Total CO2 31.9 mmol/L (22-28) H 04/11/18 14:42 VBG O2 Sat (Calc) 84.0 % (40-65) H 04/11/18 14:42 VBG Base Excess 5.1 mmol/L (0.0-2.0) H 04/11/18 14:42 VBG Potassium 3.3 mmol/L (3.6-5.2) L 04/11/18 14:42 Sodium 137.0 mmol/L (132-148) 04/11/18 14:42 Chloride 101.0 mmol/L (98-107) 04/11/18 14:42 Glucose 198 mg/dL (65-105) H 04/11/18 14:42 Lactate 2.2 mmol/L (0.7-2.1) H 04/11/18 14:42 FiO2 21.0 % 04/11/18 14:42 Sodium 137 mmol/l (132-148) 04/14/18 05:40 Potassium 3.9 MMOL/L (3.6-5.0) 04/14/18 05:40 Chloride 100 mmol/L (98-107) 04/14/18 05:40 Carbon Dioxide 25 mmol/L (22-30) 04/14/18 05:40 Anion Gap 16 (10-20) 04/14/18 05:40 BUN 25 mg/dl (7-17) H 04/14/18 05:40 Creatinine 1.1 mg/dl (0.7-1.2) 04/14/18 05:40 Est GFR ( Amer) 57 04/14/18 05:40 Est GFR (Non-Af Amer) 47 04/14/18 05:40 POC Glucose (mg/dL) 217 mg/dL (65-110) H 04/14/18 05:16 Random Glucose 235 mg/dL (65-105) H 04/14/18 05:40 Hemoglobin A1c 6.1 % (4.2-6.5) 04/12/18 06:55 Lactic Acid 1.1 mmol/L (0.7-2.1) 04/12/18 06:55 Calcium 8.8 mg/dL (8.4-10.2) 04/14/18 05:40 Total Bilirubin 0.5 mg/dl (0.2-1.3) 04/14/18 05:40 AST 60 U/L (14-36) H D 04/14/18 05:40 ALT 29 U/L (9-52) 04/14/18 05:40 Alkaline Phosphatase 102 U/L (38-126) 04/14/18 05:40 NT-Pro-B Natriuret Pep 1480 pg/ml (0-900) H 04/13/18 18:50 Total Protein 6.4 G/DL (6.3-8.2) 04/14/18 05:40 Albumin 3.0 g/dL (3.5-5.0) L 04/14/18 05:40 Globulin 3.4 gm/dL (2.2-3.9) 04/14/18 05:40 Albumin/Globulin Ratio 0.9 (1.0-2.1) L 04/14/18 05:40 Venous Blood Potassium 3.3 mmol/L (3.6-5.2) L 04/11/18 14:42 Urine Color Yellow (YELLOW) 04/11/18 14:30 Urine Clarity Cloudy (Clear) 04/11/18 14:30 Urine pH 8.0 (5.0-8.0) 04/11/18 14:30 Ur Specific [place] 1.023 (1.003-1.030) 04/11/18 14:30 Urine Protein 100 mg/dL (NEGATIVE) 04/11/18 14:30 Urine Glucose (UA) Negative mg/dL (NEGATIVE) 04/11/18 14:30 Urine Ketones Trace mg/dL (NEGATIVE) 04/11/18 14:30 Urine Blood Negative (NEGATIVE) 04/11/18 14:30 Urine Nitrate Negative (NEGATIVE) 04/11/18 14:30 Urine Bilirubin Negative (NEGATIVE) 04/11/18 14:30 Urine Urobilinogen 1.0 mg/dL (0.2-1.0) 04/11/18 14:30 Ur Leukocyte Esterase Large Surekha/uL (Negative) 04/11/18 14:30 Urine RBC (Auto) 3 /hpf (0-3) 04/11/18 14:30 Urine Microscopic WBC 642 /hpf (0-5) H 04/11/18 14:30 Ur Squamous Epith Cells 1 /hpf (0-5) 04/11/18 14:30 Urine Bacteria Few (<OCC) H 04/11/18 14:30 - Hospital Course Hospital Course: Pt is an 82 yo F with PMH of Asthma, COPD, DM-II, Gout, GERD, HTN and CKD admitted to ED on 04/11/18 due to AMS, dehydration, and UTI. Pt was found at home by niece this AM appeared to have altered mental status dry mouth and was incontinent/smelled like urine, pt lives alone, family last visited her Thursday and stated she was acting normally at that time. On evaluation in ED pt dehydrated AAO x2, no in acute distress. Hydrated pt, Urine cx- gram negative rods, empirically treated with rocephin (2 days), was found to be resistant to Rocephin, switched to Zosyn(day 2). BNP 1480- lasix given, CXR- no active disease, EKG-NSR, blood cx no growth 3 days, duoneb/steroids given for COPD. Today is AAOx3, pt denies fever, chills, headaches, SOB, chest pain, N/V/D/C, dysuria. Pt is hemodynamically stable for discharge to TCU for rehab. - Date & Time of H&P Date of H&P: 04/11/18 Time of H&P: 15:24 Discharge Exam - Head Exam Head Exam: ATRAUMATIC, NORMAL INSPECTION, NORMOCEPHALIC - Eye Exam Eye Exam: EOMI, Normal appearance - ENT Exam ENT Exam: Mucous Membranes Moist Additional comments: 2 L NC - Respiratory Exam Respiratory Exam: Rales (B/L) - Cardiovascular Exam Cardiovascular Exam: RRR, +S1, +S2 - GI/Abdominal Exam GI & Abdominal Exam: Normal Bowel Sounds, Soft. absent: Tenderness - Extremities Exam Extremities exam: normal inspection - Back Exam Back exam: absent: CVA tenderness (L), CVA tenderness (R) - Neurological Exam Neurological exam: Alert, Oriented x3 Discharge Plan - Follow Up Plan Condition: FAIR Disposition: REHAB FACILITY/REHAB UNIT Instructions: Dehydration, Adult (DC), Altered Mental Status (DC) Additional Instructions: D/C to TCU Referrals: Ishmael Ho DO [Medical Doctor] - <Kathia Lee - Last Filed: 04/14/18 17:32> Provider - Provider Date of Admission: 04/11/18 15:11 Attending physician: Kathia Lee DO Consults: 04/11/18 17:44 Nursing Referral for Wound Care Routine Comment: Physician Instructions: Reason For Exam: low charis score Hospital Course - Lab Results Lab Results: Micro Results 04/11/18 14:45 Blood Blood Culture - Preliminary NO GROWTH AFTER 3 DAYS 04/11/18 14:30 Urine,Catheterized Urine Culture - Final Proteus Mirabilis Most Recent Lab Values WBC 6.4 K/uL (4.8-10.8) 04/14/18 05:40 RBC 3.92 Mil/uL (3.80-5.20) 04/14/18 05:40 Hgb 12.1 g/dL (12.0-16.0) 04/14/18 05:40 Hct 36.5 % (34.0-47.0) 04/14/18 05:40 MCV 93.1 fl (81.0-99.0) 04/14/18 05:40 MCH 31.0 pg (27.0-31.0) 04/14/18 05:40 MCHC 33.3 g/dL (33.0-37.0) 04/14/18 05:40 RDW 14.7 % (11.5-14.5) H 04/14/18 05:40 Plt Count 155 K/uL (130-400) 04/14/18 05:40 MPV 10.8 fl (7.2-11.7) 04/14/18 05:40 Neut % (Auto) 82.3 % (50.0-75.0) H 04/14/18 05:40 Lymph % (Auto) 15.2 % (20.0-40.0) L 04/14/18 05:40 [place] % (Auto) 2.4 % (0.0-10.0) 04/14/18 05:40 Eos % (Auto) 0.0 % (0.0-4.0) 04/14/18 05:40 Baso % (Auto) 0.1 % (0.0-2.0) 04/14/18 05:40 Neut # (Auto) 5.3 K/uL (1.8-7.0) 04/14/18 05:40 Lymph # (Auto) 1.0 K/uL (1.0-4.3) 04/14/18 05:40 [place] # (Auto) 0.2 K/uL (0.0-0.8) 04/14/18 05:40 Eos # (Auto) 0.0 K/uL (0.0-0.7) 04/14/18 05:40 Baso # (Auto) 0.0 K/uL (0.0-0.2) 04/14/18 05:40 pO2 43 mm/Hg (30-55) 04/11/18 14:42 VBG pH 7.42 (7.32-7.43) 04/11/18 14:42 VBG pCO2 47 mmHg (40-60) 04/11/18 14:42 VBG HCO3 28.4 mmol/L 04/11/18 14:42 VBG Total CO2 31.9 mmol/L (22-28) H 04/11/18 14:42 VBG O2 Sat (Calc) 84.0 % (40-65) H 04/11/18 14:42 VBG Base Excess 5.1 mmol/L (0.0-2.0) H 04/11/18 14:42 VBG Potassium 3.3 mmol/L (3.6-5.2) L 04/11/18 14:42 Sodium 137.0 mmol/L (132-148) 04/11/18 14:42 Chloride 101.0 mmol/L (98-107) 04/11/18 14:42 Glucose 198 mg/dL (65-105) H 04/11/18 14:42 Lactate 2.2 mmol/L (0.7-2.1) H 04/11/18 14:42 FiO2 21.0 % 04/11/18 14:42 Sodium 137 mmol/l (132-148) 04/14/18 05:40 Potassium 3.9 MMOL/L (3.6-5.0) 04/14/18 05:40 Chloride 100 mmol/L (98-107) 04/14/18 05:40 Carbon Dioxide 25 mmol/L (22-30) 04/14/18 05:40 Anion Gap 16 (10-20) 04/14/18 05:40 BUN 25 mg/dl (7-17) H 04/14/18 05:40 Creatinine 1.1 mg/dl (0.7-1.2) 04/14/18 05:40 Est GFR ( Amer) 57 04/14/18 05:40 Est GFR (Non-Af Amer) 47 04/14/18 05:40 POC Glucose (mg/dL) 305 mg/dL (65-110) H 04/14/18 10:48 Random Glucose 235 mg/dL (65-105) H 04/14/18 05:40 Hemoglobin A1c 6.1 % (4.2-6.5) 04/12/18 06:55 Lactic Acid 1.1 mmol/L (0.7-2.1) 04/12/18 06:55 Calcium 8.8 mg/dL (8.4-10.2) 04/14/18 05:40 Total Bilirubin 0.5 mg/dl (0.2-1.3) 04/14/18 05:40 AST 60 U/L (14-36) H D 04/14/18 05:40 ALT 29 U/L (9-52) 04/14/18 05:40 Alkaline Phosphatase 102 U/L (38-126) 04/14/18 05:40 NT-Pro-B Natriuret Pep 1480 pg/ml (0-900) H 04/13/18 18:50 Total Protein 6.4 G/DL (6.3-8.2) 04/14/18 05:40 Albumin 3.0 g/dL (3.5-5.0) L 04/14/18 05:40 Globulin 3.4 gm/dL (2.2-3.9) 04/14/18 05:40 Albumin/Globulin Ratio 0.9 (1.0-2.1) L 04/14/18 05:40 Venous Blood Potassium 3.3 mmol/L (3.6-5.2) L 04/11/18 14:42 Urine Color Yellow (YELLOW) 04/11/18 14:30 Urine Clarity Cloudy (Clear) 04/11/18 14:30 Urine pH 8.0 (5.0-8.0) 04/11/18 14:30 Ur Specific [place] 1.023 (1.003-1.030) 04/11/18 14:30 Urine Protein 100 mg/dL (NEGATIVE) 04/11/18 14:30 Urine Glucose (UA) Negative mg/dL (NEGATIVE) 04/11/18 14:30 Urine Ketones Trace mg/dL (NEGATIVE) 04/11/18 14:30 Urine Blood Negative (NEGATIVE) 04/11/18 14:30 Urine Nitrate Negative (NEGATIVE) 04/11/18 14:30 Urine Bilirubin Negative (NEGATIVE) 04/11/18 14:30 Urine Urobilinogen 1.0 mg/dL (0.2-1.0) 04/11/18 14:30 Ur Leukocyte Esterase Large Surekha/uL (Negative) 04/11/18 14:30 Urine RBC (Auto) 3 /hpf (0-3) 04/11/18 14:30 Urine Microscopic WBC 642 /hpf (0-5) H 04/11/18 14:30 Ur Squamous Epith Cells 1 /hpf (0-5) 04/11/18 14:30 Urine Bacteria Few (<OCC) H 04/11/18 14:30 Attending/Attestation - Attestation I have personally seen and examined this patient.: Yes I have fully participated in the care of the patient.: Yes I have reviewed all pertinent clinical information, including history, physical exam and plan: Yes Notes (Text): 04/14/18 17:32 Agree with findings and plan as above.
--- NOTE | 2018-04-14 10:52 | RAD ---
Date of service: 04/13/2018 HISTORY: sob COMPARISON: 04/11/2018 FINDINGS: LUNGS: No active pulmonary disease. Lung volumes lower limits of normal. No consolidation seen. The asymmetrically elevated right hemidiaphragm is as before. PLEURA: No significant pleural effusion identified, no pneumothorax apparent. CARDIOVASCULAR: There is presence of aortic atherosclerotic calcification on x-ray. Normal cardiac size. Possible minimal pulmonary vascular congestion. OSSEOUS STRUCTURES: Mild thoracic spondylosis. VISUALIZED UPPER ABDOMEN: Normal. OTHER FINDINGS: None. IMPRESSION: No interval infiltrate. Atherosclerotic vascular calcifications present. Possible minimal pulmonary vascular congestion. No jose effusions noted.
[2018-04-14 14:20] VITALS: PULSE 78; O2SAT 96
--- NOTE | 2018-04-19 15:18 | PQF ---
PROVIDER RESPONSE TEXT: Acute COPD Exacerbation not present on admission REVIEWER QUERY TEXT: COPD Specificity Chronic Obstructive Pulmonary Disease is documented in the Medical Record. Please specify if: --Stable -- Exacerbation - acute -- Other, please specify H and P includes a hx. of COPD 04/13 Physician communication note includes: Concern for slight fluid overload vs COPD exas (mild). -O2 sat 99 on 2L NC. Has hx of CKD and COPD. - IV Fluids held - Reconciled home COPD medication - Duoneb treatment x1 now and schedule q6 - Methylprednisone 125mg IV x1 - Lasix 20mg IV - Probnp ordered - Chest portable ordered - Will monitor respiratory status in 1 hour after treatment The patient's Clinical Indicators include: --- Query created by: Dora Naranjo on 04/15/2018 8:10 AM Electronically signed by: Gabbi Oneill 04/19/2018 3:16 PM
--- NOTE | 2018-04-19 15:18 | PQF ---
PROVIDER RESPONSE TEXT: Acute kidney injury due to dehydration REVIEWER QUERY TEXT: Clarification of Clinical Diagnostic Findings Please clarify if there is an associated diagnosis to go along with the following chemistry labs in a patient admitted with the diagnoses:Sepsis and Pyelonephritis: BUN:30->35-.28 Creatinine:1.5->1.3->1.1 Est GFR( Amer):40>47->57 Est GFR (Non-Af Amer):33->39->47 OR: Disagree OR: Other explantion of clinical findings The patient's Clinical Indicators include: --- Query created by: Dora Naranjo on 04/13/2018 1:23 PM Electronically signed by: Gabbi Oneill 04/19/2018 3:16 PM
--- NOTE | 2018-04-19 15:18 | PQF ---
PROVIDER RESPONSE TEXT: Unable to determine type and severity of asthma REVIEWER QUERY TEXT: Asthma Specificity and Type Asthma is documented in the Medical Record. Please specify the type and severity of asthma and indic ate if this is associated with exacerbation or stable or history only and not a currently treated co ndition. Such as: -- Mild intermittent -- Mild persistent -- Moderate persistent -- Severe persistent -- Other, please specify 04/14: CXR: No interval infiltrate.Atherosclerotic vascular calcifications present.Possible minimal pulmonary vascular congestion.No jose effusions noted. H and P includes a history of Asthma and COPD 04/13 Physician communication note includes: Concern for slight fluid overload vs COPD exas (mild).O2 sat 99 on 2L NC. Has hx of CKD and COPD. - IV Fluids held - Reconciled home COPD medication - Duoneb treatment x1 now and schedule q6 - Methylprednisone 125mg IV x1 - Lasix 20mg IV - Probnp ordered - Chest portable ordered - Will monitor respiratory status in 1 hour after treatment The patient's Clinical Indicators include: --- Query created by: Dora Naranjo on 04/15/2018 8:15 AM Electronically signed by: Gabbi Oneill 04/19/2018 3:16 PM
--- NOTE | 2018-04-19 15:18 | PQF ---
PROVIDER RESPONSE TEXT: -- Diastolic CHF, Acute on chronic REVIEWER QUERY TEXT: CHF Acuity and Type Congestive Heart Failure is documented in the Medical Record. Please document the type and acuity (in cludes probable or suspected) if known versus CHF hx. only and not a currently treated condition Such as: Type: -- Systolic -- Diastolic -- Combined -- Other, please specify Acuity: -- Acute -- Chronic -- Acute on chronic -- Other, please specify 04/14 CXR: No interval infiltrate.Atherosclerotic vascular calcifications present.Possible minimal pulmonary vascular congestion.No jose effusions noted. ProBNP:1480- H and P: includes: Hx Congestive Heart Failure: Yes 04/13 Physician Communication note; Concern for slight fluid overload vs COPD exas (mild). 04/13 Progress note includes:Assessment includes: Though she denies SOB, on evaluation, she is tachypn ic with faint auditory wheezing, bilateral rales at lung bases, +1 pitting edema in extremities, and noted to have intermittent wet cough. D/C Summary D/C exam includes:Respiratory Exam: Rales (B/L) 04/13 Lasix IV stat The patient's Clinical Indicators include: -- Query created by: Dora Naranjo on 04/15/2018 7:59 AM Electronically signed by: Gabbi Oneill 04/19/2018 3:16 PM
--- NOTE | 2018-04-19 15:18 | PQF ---
PROVIDER RESPONSE TEXT: Acute kidney injury due to dehydration REVIEWER QUERY TEXT: Clarification of Clinical Diagnostic Findings Please clarify if there is an associated diagnosis to go along with the following chemistry labs in a patient admitted with the diagnoses:Sepsis and Pyelonephritis: BUN:30->35-.28 Creatinine:1.5->1.3->1.1 Est GFR( Amer):40>47->57 Est GFR (Non-Af Amer):33->39->47 OR: Disagree OR: Other explantion of clinical findings The patient's Clinical Indicators include: ------ Query created by: Dora Naranjo on 04/15/2018 7:46 AM Electronically signed by: Gabbi Oneill 04/19/2018 3:16 PM
== END 2018-04-14 14:17 | DRG 871 ==
LOC: H.ER 13:35 → H.ERHOLD 15:11 → H.MEDSURG1 16:40
PROVIDERS: ADMIT Student in an Organized Health Care Education/Training Program; ATTEND Student in an Organized Health Care Education/Training Program
DX: A41.9 Sepsis, unspecified organism (principal); I50.33 Acute on chronic diastolic (congestive) heart failure; N12 Tubulo-interstitial nephritis, not specified as acute or chronic; N39.0 Urinary tract infection, site not specified; I13.0 Hypertensive heart and chronic kidney disease with heart failure and stage 1 through stage 4 chronic kidney disease, or unspecified chronic kidney disease; N17.9 Acute kidney failure, unspecified; B96.4 Proteus (mirabilis) (morganii) as the cause of diseases classified elsewhere; Z16.19 Resistance to other specified beta lactam antibiotics; E86.0 Dehydration; N18.3 Chronic kidney disease, stage 3 (moderate); E11.22 Type 2 diabetes mellitus with diabetic chronic kidney disease; J43.9 Emphysema, unspecified; K21.9 Gastro-esophageal reflux disease without esophagitis; R32 Unspecified urinary incontinence; E78.00 Pure hypercholesterolemia, unspecified; M19.90 Unspecified osteoarthritis, unspecified site; J45.909 Unspecified asthma, uncomplicated; Z66 Do not resuscitate; Z23 Encounter for immunization; Z87.01 Personal history of pneumonia (recurrent); Z87.891 Personal history of nicotine dependence; Z88.2 Allergy status to sulfonamides; Z91.013 Allergy to seafood

== ENCOUNTER 2018-04-14 12:29 | Inpatient (IN) | payer OTHER, MEDICARE ==
[2018-04-14] MEDS ORDERED: Dextrose 50% SYRINGE Inj (50 ml) IV PRN (16:35)
[2018-04-14] MEDS ORDERED: Glucagon Recombinant 1 mg Inj IM PRN (16:35)
[2018-04-14] MEDS ORDERED: ESOMEPRAZOLE MAGNESIUM PO SCH (16:45)
[2018-04-14] MEDS: Piperacillin/Tazobact 3.375 GM in Sodium Chloride 0.9% 100 ML IVPB SCH ×2 (17:26→21:41)
[2018-04-14] MEDS: Fluticasone-Salmeterol 250-50mcg Diskus IH SCH (17:28)
[2018-04-14] MEDS: Insulin Lispro (humaLOG) 100 Units/ml Inj SC SCH ×2 (17:57→21:12)
[2018-04-14] MEDS ORDERED: Insulin Lispro (humaLOG) 100 Units/ml Inj SC SCH (22:00)
[2018-04-14] MEDS: Budesonide 0.5 mg/2 ml Inhal Susp UD IH SCH (23:49)
[2018-04-14] MEDS: Albuterol-Ipratrop 3 mg / 0.5 (3 ml) UD IH SCH (23:50)
[2018-04-15] MEDS: Albuterol-Ipratrop 3 mg / 0.5 (3 ml) UD IH SCH ×3 (01:00→13:27)
[2018-04-15] MEDS: Piperacillin/Tazobact 3.375 GM in Sodium Chloride 0.9% 100 ML IVPB SCH ×4 (03:30→22:06)
[2018-04-15] MEDS: Insulin Lispro (humaLOG) 100 Units/ml Inj SC SCH ×4 (06:56→21:59)
[2018-04-15] MEDS: Budesonide 0.5 mg/2 ml Inhal Susp UD IH SCH ×2 (07:11→19:06)
[2018-04-15 07:15] LABS: BASO % 0.1 % (0.0-2.0); HEMOGLOBIN 11.9 g/dL (12.0-16.0); LYMPH # 1.9 K/uL (1.0-4.3); LYMPH % 15.9 % (20.0-40.0); MEAN CELL VOLUME 92.6 fl (81.0-99.0); MEAN CORPUSCULAR HEMOGLOBIN 30.3 pg (27.0-31.0); MEAN CORPUSCULAR HGB CONC 32.8 g/dL (33.0-37.0); MEAN PLATELET VOLUME 10.5 fl (7.2-11.7); MONO # 1.4 K/uL (0.0-0.8); MONO % 11.4 % (0.0-10.0); NEUT # 8.9 K/uL (1.8-7.0); NEUT % 72.6 % (50.0-75.0); NRBC % 0.2 % (0.0-0.0); RBC 3.93 Mil/uL (3.80-5.20); RED CELL DISTRIBUTION WIDTH 14.8 % (11.5-14.5); WHITE BLOOD COUNT 12.2 K/uL (4.8-10.8)
[2018-04-15 07:30] LABS: ALB/GLOB RATIO 0.9 (1.0-2.1); ALBUMIN 3.3 g/dL (3.5-5.0); CALCIUM 9.7 mg/dL (8.4-10.2)
[2018-04-15] MEDS: Fluticasone-Salmeterol 250-50mcg Diskus IH SCH ×2 (08:22→17:16)
[2018-04-15] MEDS: Enoxaparin 30 mg Syringe SC SCH ×2 (08:23→10:36)
[2018-04-15] MEDS: Pantoprazole 40 mg EC Tab PO SCH (08:23)
--- NOTE | 2018-04-15 11:13 | CP.PCM.HP ---
History of Present Illness - History of Present Illness History of Present Illness: Pt is an 82 yo F with PMH of Asthma, COPD, DM-II, Gout, GERD, HTN and CKD admitted due to AMS, dehydration, and UTI. Pt was found at home by niece appeared to have altered from her baseline, dry mouth, and was incontinent/smelled like urine, pt lives alone. Today reports decreased appetite occasional nausea, Pt had a bowel movement as well, incontinent as well. Denies fever, chills, headaches, SOB, chest pain, V/D/C, dysuria. Patient participating in PT and in no acute distress. code status: Spoke with next of kin over phone, and patient in agreement she is DNR/DNI PMD: Ishmael Ho PMH:Asthma, COPD, DM-II, Gout, GERD, CKD, HTN Allergies: Sulfa, Shellfish PSH: cholecystectomy, appendectomy, cataract removal Fam Hx: Denies relevant family hx Soc Hx: Denies tobacco/alcohol/illicits/IVDA Present on Admission - Present on Admission Any Indicators Present on Admission: No History of DVT/PE: No History of Uncontrolled Diabetes: No Urinary Catheter: No Decubitus Ulcer Present: No Review of Systems - Gastrointestinal Gastrointestinal: Nausea - Genitourinary Genitourinary: Urinary Incontinence Past Patient History - Infectious Disease Hx of Infectious Diseases: None - Tetanus Immunizations Tetanus Immunization: Unknown - Past Social History Smoking Status: Never Smoked Alcohol: None Drugs: Denies Home Situation {Lives}: Alone - CARDIAC Hx Cardia Arrhythmia: No Hx Congestive Heart Failure: Yes Hx Hypercholesterolemia: Yes Hx Hypertension: Yes Hx Mitral Valve Prolapse: No Hx Pacemaker: No Hx Peripheral Edema: No - PULMONARY Hx Asthma: Yes Hx Bronchitis: Yes Hx Chronic Obstructive Pulmonary Disease (COPD): Yes Hx Emphysema: Yes Hx Pneumonia: Yes Hx Sleep Apnea: (unsure) - NEUROLOGICAL Hx Alzheimer's Disease: No Hx Dementia: No Hx Migraine: No Hx Parkinson's Disease: No Hx Seizures: No Hx Transient Ischemic Attacks (TIA): No - HEENT Hx Cataracts: Yes (bilateral cataract extraction,august and september) - RENAL Hx Chronic Kidney Disease: Yes Hx Kidney Stones: No - ENDOCRINE/METABOLIC Hx Hyperthyroidism: No Hx Hypothyroidism: No - HEMATOLOGICAL/ONCOLOGICAL Hx Anemia: No Hx Human Immunodeficiency Virus (HIV): No Hx Sickle Cell Disease: No - INTEGUMENTARY Hx Dermatological Problems: No Hx Basil Cell: No Hx Eczema: No Hx Melanoma: No Hx Psoriasis: No Hx Squamous Cell: No - MUSCULOSKELETAL/RHEUMATOLOGICAL Hx Arthritis: Yes Hx Falls: No (denies any fall) Hx Fractures: No Hx Osteoporosis: No - GASTROINTESTINAL Hx Crohn's Disease: No Hx Diverticulitis: No Hx Gall Bladder Disease: Yes (cholecystectomy) Hx Pancreatitis: No - GENITOURINARY/GYNECOLOGICAL Hx Sexually Transmitted Disorders: No - PSYCHIATRIC Hx Anxiety: No Hx Bipolar Disorder: No Hx Depression: No Hx Paranoia: No Hx Post Traumatic Stress Disorder: No Hx Schizophrenia: No - SURGICAL HISTORY Hx Appendectomy: Yes (unsure) Hx Cholecystectomy: Yes Hx Coronary Stent: No - ANESTHESIA Hx Anesthesia: Yes Meds Allergies/Adverse Reactions: Allergies Allergy/AdvReac Type Severity Reaction Status Date / Time shellfish derived Allergy RASH Verified 04/14/18 14:47 Sulfa (Sulfonamide Allergy ITCHING Verified 04/14/18 14:47 Antibiotics) Physical Exam - Constitutional Appears: Non-toxic, No Acute Distress Additional comments: forgetful at times - Head Exam Head Exam: ATRAUMATIC, NORMAL INSPECTION, NORMOCEPHALIC - Eye Exam Eye Exam: EOMI - ENT Exam ENT Exam: Mucous Membranes Moist - Neck Exam Neck exam: Positive for: Normal Inspection - Respiratory Exam Respiratory Exam: Rales (occasional scattered). absent: Rhonchi, Wheezes - Cardiovascular Exam Cardiovascular Exam: RRR, +S1, +S2 - GI/Abdominal Exam GI & Abdominal Exam: Normal Bowel Sounds, Soft. absent: Tenderness - Extremities Exam Extremities exam: Positive for: normal inspection - Back Exam Back exam: absent: CVA tenderness (L), CVA tenderness (R) - Neurological Exam Neurological exam: Alert, Oriented x3 Results - Vital Signs Recent Vital Signs: Last Vital Signs Temp 98.4 F 04/14/18 15:00 Pulse 114 H 04/15/18 08:22 Resp 19 04/14/18 16:25 BP 151/94 H 04/15/18 08:22 Pulse Ox 99 04/14/18 16:25 - Labs Result Diagrams: 04/15/18 05:50 04/15/18 05:50 Labs: Laboratory Results - last 24 hr 04/14/18 04/14/18 04/14/18 16:19 16:27 20:17 WBC RBC Hgb Hct MCV MCH MCHC RDW Plt Count MPV Neut % (Auto) Lymph % (Auto) [place] % (Auto) Eos % (Auto) Baso % (Auto) Neut # (Auto) Lymph # (Auto) [place] # (Auto) Eos # (Auto) Baso # (Auto) Sodium Potassium Chloride Carbon Dioxide Anion Gap BUN Creatinine Est GFR ( Amer) Est GFR (Non-Af Amer) POC Glucose (mg/dL) 361 H 362 H 296 H Random Glucose Calcium Total Bilirubin AST ALT Alkaline Phosphatase Total Protein Albumin Globulin Albumin/Globulin Ratio 04/15/18 04/15/18 04/15/18 05:22 05:50 05:50 WBC 12.2 H D RBC 3.93 Hgb 11.9 L Hct 36.4 MCV 92.6 MCH 30.3 MCHC 32.8 L RDW 14.8 H Plt Count 214 MPV 10.5 Neut % (Auto) 72.6 Lymph % (Auto) 15.9 L [place] % (Auto) 11.4 H Eos % (Auto) 0.0 Baso % (Auto) 0.1 Neut # (Auto) 8.9 H Lymph # (Auto) 1.9 [place] # (Auto) 1.4 H Eos # (Auto) 0.0 Baso # (Auto) 0.0 Sodium 139 Potassium 3.5 L Chloride 100 Carbon Dioxide 25 Anion Gap 18 BUN 35 H Creatinine 1.4 H Est GFR ( Amer) 43 Est GFR (Non-Af Amer) 36 POC Glucose (mg/dL) 198 H Random Glucose 175 H Calcium 9.7 Total Bilirubin 0.2 AST 53 H ALT 35 Alkaline Phosphatase 121 Total Protein 7.1 Albumin 3.3 L Globulin 3.8 Albumin/Globulin Ratio 0.9 L Assessment & Plan - Assessment and Plan (Free Text) Assessment: Pt is an 82 yo F with PMH of Asthma, COPD, DM-II, Gout, GERD, HTN and CKD was found at home by family altered from baseline with incontinence lives alone admitted due to AMS, dehydration, and UTI AMS resolved 2/2 UTI and sepsis Urine Cx proteus resist to ceftriaxone(Received rocephin x2) Started on zosyn (day 3) CXR- no active disease, EKG-NSR F/u CBC, BMP in AM UTI/Pyelonephritis Leukocytosis 12.2 Urine Cx proteus resist to ceftriaxone(Received rocephin x2) Started on zosyn (day 3) F/u CBC in AM Prerenal Azotemia acute oral hydration continue to monitor F/u BMP in AM Hypokalemia K. 3.5 Repleated Kdru 20 PO F/u BMP in AM Dehydration acute, resolved continue to monitor CKD stage 3 chronic GFR 36 HTN chronic, uncontrolled (BP 151/94) c/w Lopressor continue to monitor Diabetes chronic, controlled HGA1C 6.1 (04/12/18) COPD chronic, controlled Albuterol switched to PRN due to tachycardia (HR114) Diet Diabetic DVT PPX Lovenox 30mg SQ Code DNR/DNI - Date & Time Date: 04/15/18 Time: 09:00
[2018-04-15] MEDS ORDERED: Potassium Chloride 20 mEq ER Tab PO ONE (14:03)
[2018-04-16] MEDS: Piperacillin/Tazobact 3.375 GM in Sodium Chloride 0.9% 100 ML IVPB SCH ×4 (03:45→22:08)
[2018-04-16] MEDS: Insulin Lispro (humaLOG) 100 Units/ml Inj SC SCH ×4 (06:31→22:05)
[2018-04-16] MEDS: Budesonide 0.5 mg/2 ml Inhal Susp UD IH SCH ×2 (07:11→19:22)
[2018-04-16 08:52] LABS: CALCIUM 9.1 mg/dL (8.4-10.2)
[2018-04-16] MEDS: Enoxaparin 30 mg Syringe SC SCH (09:33)
[2018-04-16] MEDS: Fluticasone-Salmeterol 250-50mcg Diskus IH SCH ×2 (09:33→16:32)
[2018-04-16] MEDS: Pantoprazole 40 mg EC Tab PO SCH (09:34)
[2018-04-16 09:57] LABS: BASO % 0.3 % (0.0-2.0); EOS # 0.2 K/uL (0.0-0.7); EOS % 2.5 % (0.0-4.0); HEMOGLOBIN 11.7 g/dL (12.0-16.0); LYMPH # 2.3 K/uL (1.0-4.3); LYMPH % 26.3 % (20.0-40.0); MEAN CELL VOLUME 92.8 fl (81.0-99.0); MEAN CORPUSCULAR HEMOGLOBIN 31.1 pg (27.0-31.0); MEAN CORPUSCULAR HGB CONC 33.5 g/dL (33.0-37.0); MEAN PLATELET VOLUME 10.6 fl (7.2-11.7); MONO # 1.3 K/uL (0.0-0.8); MONO % 14.3 % (0.0-10.0); NEUT % 56.6 % (50.0-75.0); NRBC % 0.2 % (0.0-0.0); RBC 3.76 Mil/uL (3.80-5.20); RED CELL DISTRIBUTION WIDTH 15.3 % (11.5-14.5); WHITE BLOOD COUNT 8.9 K/uL (4.8-10.8)
[2018-04-17] MEDS: Piperacillin/Tazobact 3.375 GM in Sodium Chloride 0.9% 100 ML IVPB SCH ×3 (05:09→16:47)
[2018-04-17] MEDS: Insulin Lispro (humaLOG) 100 Units/ml Inj SC SCH ×3 (06:38→16:47)
[2018-04-17] MEDS: Albuterol-Ipratrop 3 mg / 0.5 (3 ml) UD IH PRN (07:47)
[2018-04-17] MEDS: Budesonide 0.5 mg/2 ml Inhal Susp UD IH SCH ×2 (07:47→19:11)
[2018-04-17] MEDS: Fluticasone-Salmeterol 250-50mcg Diskus IH SCH ×2 (08:29→16:46)
[2018-04-17] MEDS: Enoxaparin 30 mg Syringe SC SCH (08:30)
[2018-04-17] MEDS: Pantoprazole 40 mg EC Tab PO SCH (08:31)
[2018-04-18] MEDS: Insulin Lispro (humaLOG) 100 Units/ml Inj SC SCH ×5 (00:04→22:07)
[2018-04-18] MEDS: Piperacillin/Tazobact 3.375 GM in Sodium Chloride 0.9% 100 ML IVPB SCH ×5 (00:13→22:05)
[2018-04-18] MEDS: Fluticasone-Salmeterol 250-50mcg Diskus IH SCH ×2 (08:11→16:13)
[2018-04-18] MEDS: Enoxaparin 30 mg Syringe SC SCH (08:15)
[2018-04-18] MEDS: Pantoprazole 40 mg EC Tab PO SCH (08:16)
[2018-04-18] MEDS: Budesonide 0.5 mg/2 ml Inhal Susp UD IH SCH ×3 (09:56→19:24)
[2018-04-18] MEDS: Albuterol-Ipratrop 3 mg / 0.5 (3 ml) UD IH PRN (18:04)
[2018-04-19] MEDS: Piperacillin/Tazobact 3.375 GM in Sodium Chloride 0.9% 100 ML IVPB SCH ×4 (03:38→21:39)
[2018-04-19] MEDS: Insulin Lispro (humaLOG) 100 Units/ml Inj SC SCH ×4 (06:53→21:25)
[2018-04-19] MEDS: Budesonide 0.5 mg/2 ml Inhal Susp UD IH SCH ×2 (08:57→19:23)
[2018-04-19] MEDS: Fluticasone-Salmeterol 250-50mcg Diskus IH SCH ×2 (09:59→16:06)
[2018-04-19] MEDS: Pantoprazole 40 mg EC Tab PO SCH (10:00)
[2018-04-19] MEDS: Enoxaparin 30 mg Syringe SC SCH (10:00)
--- NOTE | 2018-04-19 12:11 | CP.PCM.CON ---
History of Present Illness - History of Present Illness History of Present Illness: Psychiatry consult note CC: "I had stomach pain." HPI: 82 yo F with PMH of Asthma, COPD, DM-II, Gout, GERD, HTN and CKD admitted due to AMS, dehydration, and UTI. Pt was found at home by niece appeared to have altered from her baseline, dry mouth, and was incontinent/smelled like urine, pt lives alone. Patient is a poor historian. Currently A + O x self and "hospital", does not know which hospital, the date or why she is in the hospital. She states that she is here because she has stomach pain. She is unable to provide accurate medical history at this time. She denies significant depression/anxiety/AH/VH/SI/HI. She does not believe she needs psychiatric medications. PMD: Ishmael Ho PMH:Asthma, COPD, DM-II, Gout, GERD, CKD, HTN Allergies: Sulfa, Shellfish PSH: cholecystectomy, appendectomy, cataract removal SH: Denies drugs/etoh/cig use; lives alone Impression: 82 yo female admitted w/ acute AMS, dehydration and UTI; likely has acute delirium due to medical issues; r/o Major Neurocognitive Disorder. No a cute behavioral disturbances. -No acute psychiatric medications or psychiatric admission indicated at this time -Recommend psychology consult to determine neurocognitive functioning; patient may need 24 hr supervision or debt collector placement if mental status does not improve with treatment of acute medical issues Past Patient History - Infectious Disease Hx of Infectious Diseases: None - Tetanus Immunizations Tetanus Immunization: Unknown - Past Social History Smoking Status: Never Smoked Alcohol: None Drugs: Denies Home Situation {Lives}: Alone - CARDIAC Hx Cardia Arrhythmia: No Hx Congestive Heart Failure: Yes Hx Hypercholesterolemia: Yes Hx Hypertension: Yes Hx Mitral Valve Prolapse: No Hx Pacemaker: No Hx Peripheral Edema: No - PULMONARY Hx Asthma: Yes Hx Bronchitis: Yes Hx Chronic Obstructive Pulmonary Disease (COPD): Yes Hx Emphysema: Yes Hx Pneumonia: Yes Hx Sleep Apnea: (unsure) - NEUROLOGICAL Hx Alzheimer's Disease: No Hx Dementia: No Hx Migraine: No Hx Parkinson's Disease: No Hx Seizures: No Hx Transient Ischemic Attacks (TIA): No - HEENT Hx Cataracts: Yes (bilateral cataract extraction,august and september) - RENAL Hx Chronic Kidney Disease: Yes Hx Kidney Stones: No - ENDOCRINE/METABOLIC Hx Hyperthyroidism: No Hx Hypothyroidism: No - HEMATOLOGICAL/ONCOLOGICAL Hx Anemia: No Hx Human Immunodeficiency Virus (HIV): No Hx Sickle Cell Disease: No - INTEGUMENTARY Hx Dermatological Problems: No Hx Basil Cell: No Hx Eczema: No Hx Melanoma: No Hx Psoriasis: No Hx Squamous Cell: No - MUSCULOSKELETAL/RHEUMATOLOGICAL Hx Arthritis: Yes Hx Falls: No (denies any fall) Hx Fractures: No Hx Osteoporosis: No - GASTROINTESTINAL Hx Crohn's Disease: No Hx Diverticulitis: No Hx Gall Bladder Disease: Yes (cholecystectomy) Hx Pancreatitis: No - GENITOURINARY/GYNECOLOGICAL Hx Sexually Transmitted Disorders: No - PSYCHIATRIC Hx Anxiety: No Hx Bipolar Disorder: No Hx Depression: No Hx Paranoia: No Hx Post Traumatic Stress Disorder: No Hx Schizophrenia: No - SURGICAL HISTORY Hx Appendectomy: Yes (unsure) Hx Cholecystectomy: Yes Hx Coronary Stent: No - ANESTHESIA Hx Anesthesia: Yes Meds Allergies/Adverse Reactions: Allergies Allergy/AdvReac Type Severity Reaction Status Date / Time shellfish derived Allergy RASH Verified 04/14/18 14:47 Sulfa (Sulfonamide Allergy ITCHING Verified 04/14/18 14:47 Antibiotics) - Medications Medications: Current Medications Acetaminophen (Tylenol 325mg Tab) 650 mg PO Q4H PRN PRN Reason: Fever >100.4 F Last Admin: 04/18/18 06:08 Dose: 650 mg Acetaminophen (Tylenol 325mg Tab) 325 mg PO Q6 PRN PRN Reason: Pain, Mild (1-3) Last Admin: 04/19/18 09:59 Dose: 325 mg Albuterol/Ipratropium (Duoneb 3 Mg/0.5 Mg (3 Ml) Ud) 3 ml IH RQ6 PRN PRN Reason: Shortness of Breath Last Admin: 04/18/18 18:04 Dose: 3 ml Budesonide (Pulmicort Respules) 0.5 mg IH RBID [facility] Last Admin: 04/19/18 08:57 Dose: 0.5 mg Dextrose (Dextrose 50% Inj) 0 ml IV STAT PRN; Protocol PRN Reason: Hypoglycemia Protocol Dextrose (Glutose 15) 0 gm PO ONCE PRN; Protocol PRN Reason: Hypoglycemia Protocol Enoxaparin Sodium (Lovenox) 30 mg SC DAILY [facility]; Protocol Last Admin: 04/19/18 10:00 Dose: 30 mg Glucagon (Glucagen Diagnostic Kit) 0 mg IM STAT PRN; Protocol PRN Reason: Hypoglycemia Protocol Piperacillin Sod/Tazobactam (Sod 3.375 gm/ Sodium Chloride) 100 mls @ 100 mls/hr IVPB Q6H [facility]; Protocol Last Admin: 04/19/18 10:05 Dose: 100 mls/hr Insulin Human Lispro (Humalog) 0 units SC ACHS [facility]; Protocol Last Admin: 04/19/18 06:53 Dose: Not Given Metoprolol Tartrate (Lopressor) 12.5 mg PO Q12 [facility] Last Admin: 04/19/18 10:00 Dose: 12.5 mg Ondansetron HCl (Zofran Inj) 4 mg IVP Q6 PRN PRN Reason: Nausea/Vomiting Pantoprazole Sodium (Protonix Ec Tab) 40 mg PO DAILY [facility] Last Admin: 04/19/18 10:00 Dose: 40 mg Fluticasone/Salmeterol (Advair Diskus 250/50) 1 puff IH BID [facility] Last Admin: 04/19/18 09:59 Dose: 1 puff Results - Vital Signs Recent Vital Signs: Last Vital Signs Temp 97.8 F 04/19/18 07:45 Pulse 80 04/19/18 10:00 Resp 18 04/19/18 07:45 BP 143/73 04/19/18 10:00 Pulse Ox 98 04/19/18 09:25 - Labs Result Diagrams: 04/16/18 08:10 04/16/18 08:10 Labs: Laboratory Results - last 24 hr 04/18/18 04/18/18 04/18/18 11:14 16:04 20:54 POC Glucose (mg/dL) 249 H 152 H 181 H 04/19/18 05:00 POC Glucose (mg/dL) 131 H
[2018-04-20] MEDS: Piperacillin/Tazobact 3.375 GM in Sodium Chloride 0.9% 100 ML IVPB SCH ×4 (03:33→21:34)
[2018-04-20] MEDS: Insulin Lispro (humaLOG) 100 Units/ml Inj SC SCH ×4 (06:34→21:16)
[2018-04-20] MEDS: Enoxaparin 30 mg Syringe SC SCH (08:00)
[2018-04-20] MEDS: Fluticasone-Salmeterol 250-50mcg Diskus IH SCH ×2 (08:00→17:16)
[2018-04-20] MEDS: Pantoprazole 40 mg EC Tab PO SCH (08:01)
[2018-04-20] MEDS: Budesonide 0.5 mg/2 ml Inhal Susp UD IH SCH ×2 (08:18→19:31)
[2018-04-20] MEDS: Albuterol-Ipratrop 3 mg / 0.5 (3 ml) UD IH PRN (08:18)
--- NOTE | 2018-04-20 13:39 | CP.PCM.PN ---
<Ivan Suh - Last Filed: 04/20/18 14:59> Subjective - Date & Time of Evaluation Date of Evaluation: 04/20/18 Time of Evaluation: 13:39 - Subjective Subjective: pt seen and evaluated at bedside today. Sitting up in bed, comfortably, NAD. Pt reports RLQ abdominal pain that started this morning. Pain is nonradiating and dull in quantity. Pt reports no BM since Thursday. No other associated symptoms. Normal PO intake, no N/V. Objective - Vital Signs/Intake and Output Vital Signs (last 24 hours): Temp Pulse Resp BP Pulse Ox 98.7 F 80 18 181/79 H 98 04/20/18 07:35 04/20/18 10:51 04/20/18 07:35 04/20/18 10:51 04/20/18 10:51 - Medications Medications: Current Medications Acetaminophen (Tylenol 325mg Tab) 650 mg PO Q4H PRN PRN Reason: Fever >100.4 F Last Admin: 04/18/18 06:08 Dose: 650 mg Acetaminophen (Tylenol 325mg Tab) 325 mg PO Q6 PRN PRN Reason: Pain, Mild (1-3) Last Admin: 04/20/18 10:15 Dose: 325 mg Albuterol/Ipratropium (Duoneb 3 Mg/0.5 Mg (3 Ml) Ud) 3 ml IH RQ6 PRN PRN Reason: Shortness of Breath Last Admin: 04/20/18 08:18 Dose: 3 ml Budesonide (Pulmicort Respules) 0.5 mg IH RBID [facility] Last Admin: 04/20/18 08:18 Dose: 0.5 mg Dextrose (Dextrose 50% Inj) 0 ml IV STAT PRN; Protocol PRN Reason: Hypoglycemia Protocol Dextrose (Glutose 15) 0 gm PO ONCE PRN; Protocol PRN Reason: Hypoglycemia Protocol Glucagon (Glucagen Diagnostic Kit) 0 mg IM STAT PRN; Protocol PRN Reason: Hypoglycemia Protocol Piperacillin Sod/Tazobactam (Sod 3.375 gm/ Sodium Chloride) 100 mls @ 100 mls/hr IVPB Q6H [facility]; Protocol Last Admin: 04/20/18 09:41 Dose: 100 mls/hr Insulin Human Lispro (Humalog) 0 units SC ACHS [facility]; Protocol Last Admin: 04/20/18 12:38 Dose: 2 units Metoprolol Tartrate (Lopressor) 12.5 mg PO Q12 [facility] Last Admin: 04/20/18 08:00 Dose: 12.5 mg Ondansetron HCl (Zofran Inj) 4 mg IVP Q6 PRN PRN Reason: Nausea/Vomiting Pantoprazole Sodium (Protonix Ec Tab) 40 mg PO DAILY [facility] Last Admin: 04/20/18 08:01 Dose: 40 mg Fluticasone/Salmeterol (Advair Diskus 250/50) 1 puff IH BID [facility] Last Admin: 04/20/18 08:00 Dose: 1 puff - Labs Labs: 04/16/18 08:10 04/16/18 08:10 Assessment and Plan - Assessment and Plan (Free Text) Assessment: Pt is an 82 yo F with PMH of Asthma, COPD, DM-II, Gout, GERD, HTN and CKD was found at home by family altered from baseline with incontinence lives alone admitted due to AMS, dehydration, and UTI AMS resolved 2/2 UTI and sepsis c/w on zosyn asordered RLQ Pain: -abd u/s pending -abd flat plate -no BM since 04/16 UTI/Pyelonephritis Leukocytosis- resolved zosyn Prerenal Azotemia acute oral hydration continue to monitor Hypokalemia resolved Dehydration acute, resolved continue to monitor CKD stage 3 chronic GFR 36 HTN chronic, uncontrolled (BP 151/94) c/w Lopressor continue to monitor Diabetes chronic, controlled HGA1C 6.1 (04/12/18) COPD chronic, controlled Albuterol switched to PRN due to tachycardia (HR114) Diet Diabetic DVT PPX Lovenox 30mg SQ Code DNR/DNI <Kathia Lee - Last Filed: 04/20/18 18:56> Objective - Vital Signs/Intake and Output Vital Signs (last 24 hours): Temp Pulse Resp BP Pulse Ox 98.6 F 82 20 159/73 H 98 04/20/18 15:22 04/20/18 15:22 04/20/18 15:22 04/20/18 15:22 04/20/18 15:22 - Medications Medications: Current Medications Acetaminophen (Tylenol 325mg Tab) 650 mg PO Q4H PRN PRN Reason: Fever >100.4 F Last Admin: 04/18/18 06:08 Dose: 650 mg Acetaminophen (Tylenol 325mg Tab) 325 mg PO Q6 PRN PRN Reason: Pain, Mild (1-3) Last Admin: 04/20/18 10:15 Dose: 325 mg Albuterol/Ipratropium (Duoneb 3 Mg/0.5 Mg (3 Ml) Ud) 3 ml IH RQ6 PRN PRN Reason: Shortness of Breath Last Admin: 04/20/18 08:18 Dose: 3 ml Budesonide (Pulmicort Respules) 0.5 mg IH RBID [facility] Last Admin: 04/20/18 08:18 Dose: 0.5 mg Dextrose (Dextrose 50% Inj) 0 ml IV STAT PRN; Protocol PRN Reason: Hypoglycemia Protocol Dextrose (Glutose 15) 0 gm PO ONCE PRN; Protocol PRN Reason: Hypoglycemia Protocol Glucagon (Glucagen Diagnostic Kit) 0 mg IM STAT PRN; Protocol PRN Reason: Hypoglycemia Protocol Piperacillin Sod/Tazobactam (Sod 3.375 gm/ Sodium Chloride) 100 mls @ 100 mls/hr IVPB Q6H [facility]; Protocol Last Admin: 04/20/18 17:47 Dose: Not Given Insulin Human Lispro (Humalog) 0 units SC ACHS [facility]; Protocol Last Admin: 04/20/18 17:16 Dose: Not Given Metoprolol Tartrate (Lopressor) 12.5 mg PO Q12 [facility] Last Admin: 04/20/18 08:00 Dose: 12.5 mg Ondansetron HCl (Zofran Inj) 4 mg IVP Q6 PRN PRN Reason: Nausea/Vomiting Pantoprazole Sodium (Protonix Ec Tab) 40 mg PO DAILY [facility] Last Admin: 04/20/18 08:01 Dose: 40 mg Fluticasone/Salmeterol (Advair Diskus 250/50) 1 puff IH BID [facility] Last Admin: 04/20/18 17:16 Dose: 1 puff - Labs Labs: 04/16/18 08:10 04/16/18 08:10 Attending/Attestation - Attestation I have personally seen and examined this patient.: Yes I have fully participated in the care of the patient.: Yes I have reviewed all pertinent clinical information, including history, physical exam and plan: Yes Notes (Text): 04/20/18 18:56 agree with findings and plan as above
--- NOTE | 2018-04-20 15:23 | RAD ---
Date of service: 04/20/2018 HISTORY: abdominal pain COMPARISON: None available. FINDINGS: BOWEL: Nonobstructive bowel gas pattern. No free intra peritoneal gas collection is identified. A [id number] amount retained fecal material scattered throughout various large-bowel segments. Occasional gas filled small bowel loops are seen in the central abdomen. A rounded density seen the right flank inferiorly which is nonspecific could reflectpill or other intraluminal undigested artifact. There are occasional vascular calcifications related to the abdominal aorta and iliac arterial system but no calcifications overlie the region of the bilateral renal silhouettes. BONES: Normal. OTHER FINDINGS: None. IMPRESSION: Nonobstructive bowel gas pattern identified. Nonspecific rounded density right flank inferiorly potentially reflecting a pill or other undigested artifact within the bowel lumen or possible extra luminal calcification in the abdomen. No free intra peritoneal gas collection identified.
[2018-04-20] MEDS ORDERED: Albuterol-Ipratrop 3 mg / 0.5 (3 ml) UD INH PRN (21:33)
[2018-04-21] MEDS: Piperacillin/Tazobact 3.375 GM in Sodium Chloride 0.9% 100 ML IVPB SCH ×4 (03:44→21:30)
[2018-04-21] MEDS: Insulin Lispro (humaLOG) 100 Units/ml Inj SC SCH ×4 (06:30→21:29)
[2018-04-21] MEDS: Budesonide 0.5 mg/2 ml Inhal Susp UD IH SCH (07:58)
[2018-04-21] MEDS: Fluticasone-Salmeterol 250-50mcg Diskus IH SCH ×2 (09:34→16:28)
[2018-04-21] MEDS: Enoxaparin 30 mg Syringe SC SCH (09:35)
[2018-04-21] MEDS: Pantoprazole 40 mg EC Tab PO SCH (09:35)
[2018-04-22] MEDS: Piperacillin/Tazobact 3.375 GM in Sodium Chloride 0.9% 100 ML IVPB SCH ×4 (04:25→21:29)
[2018-04-22] MEDS: Insulin Lispro (humaLOG) 100 Units/ml Inj SC SCH ×4 (06:31→21:01)
[2018-04-22] MEDS: Pantoprazole 40 mg EC Tab PO SCH (09:10)
[2018-04-22] MEDS: Enoxaparin 30 mg Syringe SC SCH (09:10)
[2018-04-22] MEDS: Fluticasone-Salmeterol 250-50mcg Diskus IH SCH ×2 (09:11→16:30)
--- NOTE | 2018-04-22 10:58 | CP.PCM.DIS ---
Provider - Provider Date of Admission: 04/14/18 14:51 Attending physician: Kathia Lee DO Consults: 04/14/18 19:42 Case Management Referral Routine Comment: Physician Instructions: Reason For Exam: Reason for Referral: Discharge Planning 04/14/18 19:43 Wound Care [Nursing Referral for Wound Care] Routine Comment: Physician Instructions: Reason For Exam: new admission; sacral redness and excoriation 04/14/18 19:46 Pastoral Care Referral Routine Comment: Physician Instructions: Reason For Exam: new admission; advance directives; seen by 04/19/18 11:49 Psychiatry Consult Routine Comment: Consulting Provider: Vale Alvarez Consulting Physician: Vale Alvarez Reason for Consult: alter mental status geropsych eval 04/19/18 12:27 Psychology Consult Routine Comment: Consulting Provider: Sara Palomo Consulting Physician: Sara Palomo Reason for Consult: Evaluate neurocognitive function Time Spent in preparation of Discharge (in minutes): 30 Hospital Course - Lab Results Lab Results: Most Recent Lab Values WBC 8.9 K/uL (4.8-10.8) 04/16/18 08:10 RBC 3.76 Mil/uL (3.80-5.20) L 04/16/18 08:10 Hgb 11.7 g/dL (12.0-16.0) L 04/16/18 08:10 Hct 34.9 % (34.0-47.0) 04/16/18 08:10 MCV 92.8 fl (81.0-99.0) 04/16/18 08:10 MCH 31.1 pg (27.0-31.0) H 04/16/18 08:10 MCHC 33.5 g/dL (33.0-37.0) 04/16/18 08:10 RDW 15.3 % (11.5-14.5) H 04/16/18 08:10 Plt Count 219 K/uL (130-400) 04/16/18 08:10 MPV 10.6 fl (7.2-11.7) 04/16/18 08:10 Neut % (Auto) 56.6 % (50.0-75.0) 04/16/18 08:10 Lymph % (Auto) 26.3 % (20.0-40.0) 04/16/18 08:10 Bryan % (Auto) 14.3 % (0.0-10.0) H 04/16/18 08:10 Eos % (Auto) 2.5 % (0.0-4.0) 04/16/18 08:10 Baso % (Auto) 0.3 % (0.0-2.0) 04/16/18 08:10 Neut # (Auto) 5.0 K/uL (1.8-7.0) 04/16/18 08:10 Lymph # (Auto) 2.3 K/uL (1.0-4.3) 04/16/18 08:10 Bryan # (Auto) 1.3 K/uL (0.0-0.8) H 04/16/18 08:10 Eos # (Auto) 0.2 K/uL (0.0-0.7) 04/16/18 08:10 Baso # (Auto) 0.0 K/uL (0.0-0.2) 04/16/18 08:10 Sodium 138 mmol/l (132-148) 04/16/18 08:10 Potassium 4.1 MMOL/L (3.6-5.0) 04/16/18 08:10 Chloride 100 mmol/L (98-107) 04/16/18 08:10 Carbon Dioxide 27 mmol/L (22-30) 04/16/18 08:10 Anion Gap 15 (10-20) 04/16/18 08:10 BUN 31 mg/dl (7-17) H 04/16/18 08:10 Creatinine 1.2 mg/dl (0.7-1.2) 04/16/18 08:10 Est GFR ( Amer) 52 04/16/18 08:10 Est GFR (Non-Af Amer) 43 04/16/18 08:10 POC Glucose (mg/dL) 152 mg/dL (65-110) H 04/22/18 10:28 Random Glucose 95 mg/dL (65-105) 04/16/18 08:10 Hemoglobin A1c 6.3 % (4.2-6.5) 04/15/18 18:15 Calcium 9.1 mg/dL (8.4-10.2) 04/16/18 08:10 Total Bilirubin 0.2 mg/dl (0.2-1.3) 04/15/18 05:50 AST 53 U/L (14-36) H 04/15/18 05:50 ALT 35 U/L (9-52) 04/15/18 05:50 Alkaline Phosphatase 121 U/L (38-126) 04/15/18 05:50 Total Protein 7.1 G/DL (6.3-8.2) 04/15/18 05:50 Albumin 3.3 g/dL (3.5-5.0) L 04/15/18 05:50 Globulin 3.8 gm/dL (2.2-3.9) 04/15/18 05:50 Albumin/Globulin Ratio 0.9 (1.0-2.1) L 04/15/18 05:50 - Hospital Course Hospital Course: Pt is an 82 yo F with PMH of Asthma, COPD, DM-II, Gout, GERD, HTN and CKD was found at home by family altered from baseline with incontinence lives alone admitted due to AMS, dehydration, and UTI. Patient completed abx, complained of abdominal pain however ultrasound and flat plate negative. Stable for discharge to [facility]. AMS resolved 2/2 UTI and sepsis c/w on zosyn asordered RLQ Pain: -abd u/s pending -abd flat plate -no BM since 04/16 UTI/Pyelonephritis Leukocytosis- resolved zosyn Prerenal Azotemia acute oral hydration continue to monitor Hypokalemia resolved Dehydration acute, resolved continue to monitor CKD stage 3 chronic GFR 36 HTN chronic, uncontrolled (BP 151/94) c/w Lopressor continue to monitor Diabetes chronic, controlled HGA1C 6.1 (04/12/18) COPD chronic, controlled Albuterol switched to PRN due to tachycardia ([id number]) Diet Diabetic DVT PPX Lovenox 30mg SQ Code DNR/DNI Discharge Exam - Head Exam Additional comments: GEN: WDWN, alert, cooperative HEENT: NCAT, PERRL, EOMI HEART: RRR, +S1S2, NO MRG LUNG: CTAB, NO WRR ABD: soft, NT, ND, No HSM, No masses EXT: normal pedal pulses NEURO: awake, alert SKIN: warm, dry PSYCH: normal mood, normal affect Discharge Plan - Follow Up Plan Condition: GOOD Disposition: TRANSF TO SNF
[2018-04-23] MEDS: Insulin Lispro (humaLOG) 100 Units/ml Inj SC SCH ×4 (06:29→23:13)
--- NOTE | 2018-04-23 07:59 | CP.PCM.CON ---
History of Present Illness - History of Present Illness History of Present Illness: Pt is an 82 year old female admitted to [facility] and referred to the com writer for evaluation. Med history positive for dehydration, DM, HTN. See medical record for complete medical history. Pt unable to provide her medical history. Pt unable to recall events leading to her admission other than that "her sister" called 911. Pt earlier in the interview denied having any siblings still remaining. Pt reported living alone, being with no children. She spoke of having meals on wheels and no support from family. According to nursing staff, niece/nephew are involved. 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 Pt denied a psychiaric history and denied a history of alcohol abuse, drug abuse, smoking. Pt spoke of spending her time watching TV. She reported increased memory issues prior to admission. On this interview, pt was not oriented to year, month, day or date. Pt was unable to report details of her hospital admission. She was unable to describe her day to day circumstances. She intially reported living with her mother. Significant cognitive deficits were evident during the interview. She denied depression and anxiety though her affect was flat. Plan: Continued evaluation of her cognitive status to determine future needs, continued support to determine possible mood disorder, possible neurologist evaluation. Thank you for this referral, Dx: Cognitive Impairment- Current Past Patient History - Infectious Disease Hx of Infectious Diseases: None - Tetanus Immunizations Tetanus Immunization: Unknown - Past Social History Smoking Status: Never Smoked Alcohol: None Drugs: Denies Home Situation {Lives}: Alone - CARDIAC Hx Cardia Arrhythmia: No Hx Congestive Heart Failure: Yes Hx Hypercholesterolemia: Yes Hx Hypertension: Yes Hx Mitral Valve Prolapse: No Hx Pacemaker: No Hx Peripheral Edema: No - PULMONARY Hx Asthma: Yes Hx Bronchitis: Yes Hx Chronic Obstructive Pulmonary Disease (COPD): Yes Hx Emphysema: Yes Hx Pneumonia: Yes Hx Sleep Apnea: (unsure) - NEUROLOGICAL Hx Alzheimer's Disease: No Hx Dementia: No Hx Migraine: No Hx Parkinson's Disease: No Hx Seizures: No Hx Transient Ischemic Attacks (TIA): No - HEENT Hx Cataracts: Yes (bilateral cataract extraction,august and september) - RENAL Hx Chronic Kidney Disease: Yes Hx Kidney Stones: No - ENDOCRINE/METABOLIC Hx Hyperthyroidism: No Hx Hypothyroidism: No - HEMATOLOGICAL/ONCOLOGICAL Hx Anemia: No Hx Human Immunodeficiency Virus (HIV): No Hx Sickle Cell Disease: No - INTEGUMENTARY Hx Dermatological Problems: No Hx Basil Cell: No Hx Eczema: No Hx Melanoma: No Hx Psoriasis: No Hx Squamous Cell: No - MUSCULOSKELETAL/RHEUMATOLOGICAL Hx Arthritis: Yes Hx Falls: No (denies any fall) Hx Fractures: No Hx Osteoporosis: No - GASTROINTESTINAL Hx Crohn's Disease: No Hx Diverticulitis: No Hx Gall Bladder Disease: Yes (cholecystectomy) Hx Pancreatitis: No - GENITOURINARY/GYNECOLOGICAL Hx Sexually Transmitted Disorders: No - PSYCHIATRIC Hx Anxiety: No Hx Bipolar Disorder: No Hx Depression: No Hx Paranoia: No Hx Post Traumatic Stress Disorder: No Hx Schizophrenia: No - SURGICAL HISTORY Hx Appendectomy: Yes (unsure) Hx Cholecystectomy: Yes Hx Coronary Stent: No - ANESTHESIA Hx Anesthesia: Yes Meds Home Medications: Home Medication List Medication Instructions Recorded Confirmed Type Metoprolol Tartrate [Lopressor] 12.5 mg PO Q12 #0 tab 04/22/18 Rx Allergies/Adverse Reactions: Allergies Allergy/AdvReac Type Severity Reaction Status Date / Time shellfish derived Allergy RASH Verified 04/14/18 14:47 Sulfa (Sulfonamide Allergy ITCHING Verified 04/14/18 14:47 Antibiotics) - Medications Medications: Current Medications Acetaminophen (Tylenol 325mg Tab) 650 mg PO Q4H PRN PRN Reason: Fever >100.4 F Last Admin: 04/18/18 06:08 Dose: 650 mg Acetaminophen (Tylenol 325mg Tab) 325 mg PO Q6 PRN PRN Reason: Pain, Mild (1-3) Last Admin: 04/20/18 20:23 Dose: 325 mg Albuterol/Ipratropium (Duoneb 3 Mg/0.5 Mg (3 Ml) Ud) 3 ml IH RQ6 PRN PRN Reason: Shortness of Breath Last Admin: 04/20/18 08:18 Dose: 3 ml Albuterol/Ipratropium (Duoneb 3 Mg/0.5 Mg (3 Ml) Ud) 3 ml INH RQ4 PRN PRN Reason: Shortness of Breath Dextrose (Dextrose 50% Inj) 0 ml IV STAT PRN; Protocol PRN Reason: Hypoglycemia Protocol Dextrose (Glutose 15) 0 gm PO ONCE PRN; Protocol PRN Reason: Hypoglycemia Protocol Enoxaparin Sodium (Lovenox) 30 mg SC DAILY [facility]; Protocol Last Admin: 04/22/18 09:10 Dose: 30 mg Glucagon (Glucagen Diagnostic Kit) 0 mg IM STAT PRN; Protocol PRN Reason: Hypoglycemia Protocol Insulin Human Lispro (Humalog) 0 units SC ACHS [facility]; Protocol Last Admin: 04/23/18 06:29 Dose: Not Given Metoprolol Tartrate (Lopressor) 12.5 mg PO Q12 [facility] Last Admin: 04/22/18 20:59 Dose: 12.5 mg Ondansetron HCl (Zofran Inj) 4 mg IVP Q6 PRN PRN Reason: Nausea/Vomiting Pantoprazole Sodium (Protonix Ec Tab) 40 mg PO DAILY [facility] Last Admin: 04/22/18 09:10 Dose: 40 mg Fluticasone/Salmeterol (Advair Diskus 250/50) 1 puff IH BID [facility] Last Admin: 04/22/18 16:30 Dose: 1 puff Results - Vital Signs Recent Vital Signs: Last Vital Signs Temp 99.7 F H 04/22/18 19:19 Pulse 99 H 04/22/18 19:19 Resp 20 04/22/18 19:19 BP 162/76 H 04/22/18 19:19 Pulse Ox 95 04/22/18 19:19 - Labs Result Diagrams: 04/16/18 08:10 04/16/18 08:10 Labs: Laboratory Results - last 24 hr 04/22/18 04/22/18 04/22/18 10:28 15:45 20:52 POC Glucose (mg/dL) 152 H 154 H 135 H 04/23/18 05:47 POC Glucose (mg/dL) 123 H
[2018-04-23] MEDS: Enoxaparin 30 mg Syringe SC SCH (08:05)
[2018-04-23] MEDS: Fluticasone-Salmeterol 250-50mcg Diskus IH SCH ×3 (08:05→16:23)
[2018-04-23] MEDS: Pantoprazole 40 mg EC Tab PO SCH (08:06)
[2018-04-23 13:19] LABS: HEMOGLOBIN 11.4 g/dL (12.0-16.0); MEAN CELL VOLUME 91.1 fl (81.0-99.0); MEAN CORPUSCULAR HEMOGLOBIN 30.8 pg (27.0-31.0); MEAN CORPUSCULAR HGB CONC 33.7 g/dL (33.0-37.0); RBC 3.72 Mil/uL (3.80-5.20); RED CELL DISTRIBUTION WIDTH 14.6 % (11.5-14.5)
[2018-04-23 13:39] LABS: SQUAMOUS EPITHIAL 83 /hpf (0-5); URINE BACTERIA FEW (<OCC); URINE BILIRUBIN NEGATIVE (NEGATIVE); URINE BLOOD SMALL (NEGATIVE); URINE CLARITY CLOUDY (Clear); URINE COLOR YELLOW (YELLOW); URINE GLUCOSE (UA) 50 mg/dL (NEGATIVE); URINE LEUKOCYTE ESTERASE MOD Leu/uL (Negative); URINE PROTEIN 30 mg/dL (NEGATIVE); URINE UROBILINOGEN 0.2-1.0 mg/dL (0.2-1.0)
[2018-04-23 13:54] LABS: ALB/GLOB RATIO 0.8 (1.0-2.1); ALBUMIN 3.2 g/dL (3.5-5.0); CALCIUM 9.7 mg/dL (8.4-10.2)
[2018-04-23] MEDS ORDERED: Potassium Chloride 20 mEq/15 ml LIQ UD PO ONE (13:59)
[2018-04-23] MEDS ORDERED: Magnesium Sulfate 2 gm/50 ml 2 GM/50 ML BAG IVPB ONE (13:59)
[2018-04-23] MEDS: Potassium Chloride 20 mEq 100 ML IVPB SCH ×2 (14:45→16:06)
[2018-04-23] MEDS ORDERED: Meropenem 1 GM in Sodium Chloride 0.9% 100 ML IVPB ONE ×2 (15:28→17:00)
[2018-04-24 05:26] LABS: BASO # 0.1 K/uL (0.0-0.2); BASO % 0.3 % (0.0-2.0); EOS % 0.2 % (0.0-4.0); HEMOGLOBIN 10.9 g/dL (12.0-16.0); LYMPH # 2.7 K/uL (1.0-4.3); LYMPH % 17.2 % (20.0-40.0); MEAN CORPUSCULAR HEMOGLOBIN 30.6 pg (27.0-31.0); MEAN CORPUSCULAR HGB CONC 33.6 g/dL (33.0-37.0); MEAN PLATELET VOLUME 9.1 fl (7.2-11.7); MONO % 12.5 % (0.0-10.0); NEUT # 11.2 K/uL (1.8-7.0); NEUT % 69.8 % (50.0-75.0); RBC 3.57 Mil/uL (3.80-5.20); RED CELL DISTRIBUTION WIDTH 14.6 % (11.5-14.5)
[2018-04-24 05:42] LABS: ALB/GLOB RATIO 0.8 (1.0-2.1); ALBUMIN 3.1 g/dL (3.5-5.0); CALCIUM 9.9 mg/dL (8.4-10.2)
[2018-04-24] MEDS: Insulin Lispro (humaLOG) 100 Units/ml Inj SC SCH ×4 (08:06→22:53)
[2018-04-24] MEDS: Fluticasone-Salmeterol 250-50mcg Diskus IH SCH ×2 (08:41→16:34)
[2018-04-24] MEDS: Pantoprazole 40 mg EC Tab PO SCH (08:42)
[2018-04-24] MEDS: Enoxaparin 30 mg Syringe SC SCH (08:42)
--- NOTE | 2018-04-24 11:12 | CP.PCM.CON ---
History of Present Illness - History of Present Illness History of Present Illness: Infectious Disease Consultation Note- Asked to see this patient at the request of the hospitalist for UTI. Patient is a 82-year-old female with past medical history of asthma, COPD, diabetes type 2, gout, GERD, hypertension, chronic kidney disease who was admitted a week ago after she was found to have change in her mental status by her family at home. Patient was have found to have positive urinalysis on admission and urine c ulture grew Proteus that was resistant to ceftriaxone patient was started on IV Zosyn as per the primary team. Patient was clinically improved transfer to TCU to complete her antibiotic regimen and to get physical therapy. I am asked to see the patient because she was found to have elevated white blood cell count and hence to help with antibiotic management. Patient has already received 1 dose of meropenem as per the primary team's order. Currently patient is awake and alert denies any abdominal pain, denies any dysuria, denies any diarrhea, denies any nausea vomiting, denies any fever, denies any cough or shortness of breath. Patient's family is at her bedside. PMH:Asthma, COPD, DM-II, Gout, GERD, CKD, HTN Allergies: Sulfa, Shellfish PSH: cholecystectomy, appendectomy, cataract removal Fam Hx: Denies relevant family hx Soc Hx: Denies tobacco/alcohol/illicits/IVDA Review of Systems - Review of Systems Review of Systems: Review of systems Patient denies any headaches, denies any cough, denies any shortness of breath, denies any chest pain, denies any nausea vomiting, denies any abdominal pain, denies any diarrhea, denies any dysuria Patient states she did have abdominal pian before but that has resolved. has low appetite Denies any recent travel Denies any sick contacts Denies any animal contact Past Patient History - Infectious Disease Hx of Infectious Diseases: None - Tetanus Immunizations Tetanus Immunization: Unknown - Past Social History Smoking Status: Never Smoked Alcohol: None Drugs: Denies Home Situation {Lives}: Alone - CARDIAC Hx Cardia Arrhythmia: No Hx Congestive Heart Failure: Yes Hx Hypercholesterolemia: Yes Hx Hypertension: Yes Hx Mitral Valve Prolapse: No Hx Pacemaker: No Hx Peripheral Edema: No - PULMONARY Hx Asthma: Yes Hx Bronchitis: Yes Hx Chronic Obstructive Pulmonary Disease (COPD): Yes Hx Emphysema: Yes Hx Pneumonia: Yes Hx Sleep Apnea: (unsure) - NEUROLOGICAL Hx Alzheimer's Disease: No Hx Dementia: No Hx Migraine: No Hx Parkinson's Disease: No Hx Seizures: No Hx Transient Ischemic Attacks (TIA): No - HEENT Hx Cataracts: Yes (bilateral cataract extraction,august and september) - RENAL Hx Chronic Kidney Disease: Yes Hx Kidney Stones: No - ENDOCRINE/METABOLIC Hx Hyperthyroidism: No Hx Hypothyroidism: No - HEMATOLOGICAL/ONCOLOGICAL Hx Blood Disorders: No Hx Sickle Cell Disease: No - INTEGUMENTARY Hx Dermatological Problems: No Hx Basil Cell: No Hx Eczema: No Hx Melanoma: No Hx Psoriasis: No Hx Squamous Cell: No - MUSCULOSKELETAL/RHEUMATOLOGICAL Hx Arthritis: Yes Hx Falls: No (denies any fall) Hx Fractures: No Hx Osteoporosis: No - GASTROINTESTINAL Hx Crohn's Disease: No Hx Diverticulitis: No Hx Gall Bladder Disease: Yes (cholecystectomy) Hx Pancreatitis: No - GENITOURINARY/GYNECOLOGICAL Hx Sexually Transmitted Disorders: No - PSYCHIATRIC Hx Anxiety: No Hx Bipolar Disorder: No Hx Depression: No Hx Paranoia: No Hx Post Traumatic Stress Disorder: No Hx Schizophrenia: No - SURGICAL HISTORY Hx Appendectomy: Yes (unsure) Hx Cholecystectomy: Yes Hx Coronary Stent: No - ANESTHESIA Hx Anesthesia: Yes Meds Home Medications: Home Medication List Medication Instructions Recorded Confirmed Type Metoprolol Tartrate [Lopressor] 12.5 mg PO Q12 #0 tab 04/22/18 Rx Allergies/Adverse Reactions: Allergies Allergy/AdvReac Type Severity Reaction Status Date / Time shellfish derived Allergy RASH Verified 04/14/18 14:47 Sulfa (Sulfonamide Allergy ITCHING Verified 04/14/18 14:47 Antibiotics) - Medications Medications: Current Medications Acetaminophen (Tylenol 325mg Tab) 650 mg PO Q4H PRN PRN Reason: Fever >100.4 F Last Admin: 04/18/18 06:08 Dose: 650 mg Acetaminophen (Tylenol 325mg Tab) 325 mg PO Q6 PRN PRN Reason: Pain, Mild (1-3) Last Admin: 04/20/18 20:23 Dose: 325 mg Albuterol/Ipratropium (Duoneb 3 Mg/0.5 Mg (3 Ml) Ud) 3 ml IH RQ6 PRN PRN Reason: Shortness of Breath Last Admin: 04/20/18 08:18 Dose: 3 ml Albuterol/Ipratropium (Duoneb 3 Mg/0.5 Mg (3 Ml) Ud) 3 ml INH RQ4 PRN PRN Reason: Shortness of Breath Dextrose (Dextrose 50% Inj) 0 ml IV STAT PRN; Protocol PRN Reason: Hypoglycemia Protocol Dextrose (Glutose 15) 0 gm PO ONCE PRN; Protocol PRN Reason: Hypoglycemia Protocol Enoxaparin Sodium (Lovenox) 30 mg SC DAILY [facility]; Protocol Last Admin: 04/24/18 08:42 Dose: 30 mg Glucagon (Glucagen Diagnostic Kit) 0 mg IM STAT PRN; Protocol PRN Reason: Hypoglycemia Protocol Insulin Human Lispro (Humalog) 0 units SC ACHS [facility]; Protocol Last Admin: 04/24/18 08:06 Dose: Not Given Metoprolol Tartrate (Lopressor) 12.5 mg PO Q12 [facility] Last Admin: 04/24/18 08:42 Dose: 12.5 mg Ondansetron HCl (Zofran Inj) 4 mg IVP Q6 PRN PRN Reason: Nausea/Vomiting Pantoprazole Sodium (Protonix Ec Tab) 40 mg PO DAILY [facility] Last Admin: 04/24/18 08:42 Dose: 40 mg Fluticasone/Salmeterol (Advair Diskus 250/50) 1 puff IH BID [facility] Last Admin: 04/24/18 08:41 Dose: 1 puff Physical Exam - Constitutional Appears: Non-toxic, No Acute Distress - Head Exam Head Exam: ATRAUMATIC - Eye Exam Eye Exam: EOMI, PERRL - ENT Exam Additional comments: dry oropharynx mild thrush - Neck Exam Neck exam: Positive for: Full Rom - Respiratory Exam Respiratory Exam: Clear to Auscultation Bilateral, NORMAL BREATHING PATTERN - Cardiovascular Exam Cardiovascular Exam: RRR, +S1, +S2 - GI/Abdominal Exam GI & Abdominal Exam: Normal Bowel Sounds, Soft Additional comments: NT, ND - Extremities Exam Extremities exam: Positive for: normal inspection - Neurological Exam Neurological exam: Alert, Oriented x3 Results - Vital Signs Recent Vital Signs: Last Vital Signs Temp 97.6 F 04/24/18 10:07 Pulse 90 04/24/18 10:07 Resp 20 04/24/18 10:07 BP 149/83 04/24/18 10:07 Pulse Ox 99 04/24/18 10:07 - Labs Result Diagrams: 04/24/18 04:30 04/24/18 04:30 Labs: Laboratory Results - last 24 hr 04/23/18 04/23/18 04/23/18 13:00 13:00 13:20 WBC 16.0 H D RBC 3.72 L Hgb 11.4 L Hct 33.9 L MCV 91.1 MCH 30.8 MCHC 33.7 RDW 14.6 H Plt Count 372 D MPV Neut % (Auto) Lymph % (Auto) [place] % (Auto) Eos % (Auto) Baso % (Auto) Neut # (Auto) Lymph # (Auto) [place] # (Auto) Eos # (Auto) Baso # (Auto) Sodium 135 Potassium 3.0 L Chloride 96 L Carbon Dioxide 30 Anion Gap 12 BUN 16 Creatinine 1.1 Est GFR ( Amer) 57 Est GFR (Non-Af Amer) 47 POC Glucose (mg/dL) Random Glucose 129 H Calcium 9.7 Phosphorus 3.4 Magnesium 1.4 L Total Bilirubin 0.4 AST 41 H D ALT 21 Alkaline Phosphatase 84 Total Protein 7.1 Albumin 3.2 L Globulin 3.9 Albumin/Globulin Ratio 0.8 L Urine Color Yellow Urine Clarity Cloudy Urine pH 6.0 Ur Specific [place] 1.017 Urine Protein 30 Urine Glucose (UA) 50 Urine Ketones Negative Urine Blood Small Urine Nitrate Negative Urine Bilirubin Negative Urine Urobilinogen 0.2-1.0 Ur Leukocyte Esterase Mod Urine RBC (Auto) 13 H Urine Microscopic WBC 32 H Ur Squamous Epith Cells 83 H Urine Bacteria Few H 04/24/18 04/24/18 04/24/18 04:30 04:30 05:32 WBC 16.0 H RBC 3.57 L Hgb 10.9 L Hct 32.5 L MCV 91.0 MCH 30.6 MCHC 33.6 RDW 14.6 H Plt Count 371 MPV 9.1 Neut % (Auto) 69.8 Lymph % (Auto) 17.2 L [place] % (Auto) 12.5 H Eos % (Auto) 0.2 Baso % (Auto) 0.3 Neut # (Auto) 11.2 H Lymph # (Auto) 2.7 [place] # (Auto) 2.0 H Eos # (Auto) 0.0 Baso # (Auto) 0.1 Sodium 136 Potassium 3.8 Chloride 99 Carbon Dioxide 29 Anion Gap 12 BUN 17 Creatinine 1.1 Est GFR ( Amer) 57 Est GFR (Non-Af Amer) 47 POC Glucose (mg/dL) 109 Random Glucose 121 H Calcium 9.9 Phosphorus Magnesium 1.9 Total Bilirubin 0.4 AST 40 H ALT 16 Alkaline Phosphatase 82 Total Protein 6.9 Albumin 3.1 L Globulin 3.9 Albumin/Globulin Ratio 0.8 L Urine Color Urine Clarity Urine pH Ur Specific [place] Urine Protein Urine Glucose (UA) Urine Ketones Urine Blood Urine Nitrate Urine Bilirubin Urine Urobilinogen Ur Leukocyte Esterase Urine RBC (Auto) Urine Microscopic WBC Ur Squamous Epith Cells Urine Bacteria Laboratory Results - last 72 hr 04/21/18 04/21/18 04/22/18 15:51 21:08 10:28 WBC RBC Hgb Hct MCV MCH MCHC RDW Plt Count MPV Neut % (Auto) Lymph % (Auto) [place] % (Auto) Eos % (Auto) Baso % (Auto) Neut # (Auto) Lymph # (Auto) [place] # (Auto) Eos # (Auto) Baso # (Auto) Sodium Potassium Chloride Carbon Dioxide Anion Gap BUN Creatinine Est GFR ( Amer) Est GFR (Non-Af Amer) POC Glucose (mg/dL) 102 161 H 152 H Random Glucose Calcium Phosphorus Magnesium Total Bilirubin AST ALT Alkaline Phosphatase Total Protein Albumin Globulin Albumin/Globulin Ratio Urine Color Urine Clarity Urine pH Ur Specific [place] Urine Protein Urine Glucose (UA) Urine Ketones Urine Blood Urine Nitrate Urine Bilirubin Urine Urobilinogen Ur Leukocyte Esterase Urine RBC (Auto) Urine Microscopic WBC Ur Squamous Epith Cells Urine Bacteria 04/22/18 04/22/18 04/23/18 15:45 20:52 05:47 WBC RBC Hgb Hct MCV MCH MCHC RDW Plt Count MPV Neut % (Auto) Lymph % (Auto) [place] % (Auto) Eos % (Auto) Baso % (Auto) Neut # (Auto) Lymph # (Auto) [place] # (Auto) Eos # (Auto) Baso # (Auto) Sodium Potassium Chloride Carbon Dioxide Anion Gap BUN Creatinine Est GFR ( Amer) Est GFR (Non-Af Amer) POC Glucose (mg/dL) 154 H 135 H 123 H Random Glucose Calcium Phosphorus Magnesium Total Bilirubin AST ALT Alkaline Phosphatase Total Protein Albumin Globulin Albumin/Globulin Ratio Urine Color Urine Clarity Urine pH Ur Specific [place] Urine Protein Urine Glucose (UA) Urine Ketones Urine Blood Urine Nitrate Urine Bilirubin Urine Urobilinogen Ur Leukocyte Esterase Urine RBC (Auto) Urine Microscopic WBC Ur Squamous Epith Cells Urine Bacteria 04/23/18 04/23/18 04/23/18 10:29 13:00 13:00 WBC 16.0 H D RBC 3.72 L Hgb 11.4 L Hct 33.9 L MCV 91.1 MCH 30.8 MCHC 33.7 RDW 14.6 H Plt Count 372 D MPV Neut % (Auto) Lymph % (Auto) [place] % (Auto) Eos % (Auto) Baso % (Auto) Neut # (Auto) Lymph # (Auto) [place] # (Auto) Eos # (Auto) Baso # (Auto) Sodium 135 Potassium 3.0 L Chloride 96 L Carbon Dioxide 30 Anion Gap 12 BUN 16 Creatinine 1.1 Est GFR ( Amer) 57 Est GFR (Non-Af Amer) 47 POC Glucose (mg/dL) 170 H Random Glucose 129 H Calcium 9.7 Phosphorus 3.4 Magnesium 1.4 L Total Bilirubin 0.4 AST 41 H D ALT 21 Alkaline Phosphatase 84 Total Protein 7.1 Albumin 3.2 L Globulin 3.9 Albumin/Globulin Ratio 0.8 L Urine Color Urine Clarity Urine pH Ur Specific [place] Urine Protein Urine Glucose (UA) Urine Ketones Urine Blood Urine Nitrate Urine Bilirubin Urine Urobilinogen Ur Leukocyte Esterase Urine RBC (Auto) Urine Microscopic WBC Ur Squamous Epith Cells Urine Bacteria 04/23/18 04/24/18 04/24/18 13:20 04:30 04:30 WBC 16.0 H RBC 3.57 L Hgb 10.9 L Hct 32.5 L MCV 91.0 MCH 30.6 MCHC 33.6 RDW 14.6 H Plt Count 371 MPV 9.1 Neut % (Auto) 69.8 Lymph % (Auto) 17.2 L [place] % (Auto) 12.5 H Eos % (Auto) 0.2 Baso % (Auto) 0.3 Neut # (Auto) 11.2 H Lymph # (Auto) 2.7 [place] # (Auto) 2.0 H Eos # (Auto) 0.0 Baso # (Auto) 0.1 Sodium 136 Potassium 3.8 Chloride 99 Carbon Dioxide 29 Anion Gap 12 BUN 17 Creatinine 1.1 Est GFR ( Amer) 57 Est GFR (Non-Af Amer) 47 POC Glucose (mg/dL) Random Glucose 121 H Calcium 9.9 Phosphorus Magnesium 1.9 Total Bilirubin 0.4 AST 40 H ALT 16 Alkaline Phosphatase 82 Total Protein 6.9 Albumin 3.1 L Globulin 3.9 Albumin/Globulin Ratio 0.8 L Urine Color Yellow Urine Clarity Cloudy Urine pH 6.0 Ur Specific [place] 1.017 Urine Protein 30 Urine Glucose (UA) 50 Urine Ketones Negative Urine Blood Small Urine Nitrate Negative Urine Bilirubin Negative Urine Urobilinogen 0.2-1.0 Ur Leukocyte Esterase Mod Urine RBC (Auto) 13 H Urine Microscopic WBC 32 H Ur Squamous Epith Cells 83 H Urine Bacteria Few H 04/24/18 04/24/18 05:32 11:07 WBC RBC Hgb Hct MCV MCH MCHC RDW Plt Count MPV Neut % (Auto) Lymph % (Auto) [place] % (Auto) Eos % (Auto) Baso % (Auto) Neut # (Auto) Lymph # (Auto) [place] # (Auto) Eos # (Auto) Baso # (Auto) Sodium Potassium Chloride Carbon Dioxide Anion Gap BUN Creatinine Est GFR ( Amer) Est GFR (Non-Af Amer) POC Glucose (mg/dL) 109 109 Random Glucose Calcium Phosphorus Magnesium Total Bilirubin AST ALT Alkaline Phosphatase Total Protein Albumin Globulin Albumin/Globulin Ratio Urine Color Urine Clarity Urine pH Ur Specific [place] Urine Protein Urine Glucose (UA) Urine Ketones Urine Blood Urine Nitrate Urine Bilirubin Urine Urobilinogen Ur Leukocyte Esterase Urine RBC (Auto) Urine Microscopic WBC Ur Squamous Epith Cells Urine Bacteria Microbiology 04/11/18 14:45 Blood Blood Culture - Final 04/11/18 14:45 Blood Gram Stain - Final NO GROWTH AFTER 5 DAYS TEST NOT PERFORMED 04/11/18 14:30 Urine,Catheterized Urine Culture - Final Proteus Mirabilis Assessment & Plan (1) UTI (urinary tract infection) Status: Acute (2) Leukocytosis Status: Acute - Assessment and Plan (Free Text) Assessment: Assessment and plan 82-year-old female with multiple medical conditions who was found to have positive urinary tract infection pleaded antibiotic regimen on the medical floor and transferred to TCU however currently she is found to have ablation and her white blood cell count. Patient is afebrile Leukocytosis is present Positive UA admission urine culture positive for Proteus which is sensitive only to Zosyn ertapenem and meropenem with the best LUZ for ertapenem. Plan Advised to start patient on ertapenem 1 g IV daily. Check CBC in a.m. Check renal ultrasound. Check blood culture. All labs and imaging and pertinent chart notes were reviewed. All above discussed with patient and she verbalizes full understanding on above agrees with the above plan of care. Thank you for allowing me to take part in the care of this patient.
--- NOTE | 2018-04-24 13:28 | CP.PCM.CON ---
History of Present Illness - History of Present Illness History of Present Illness: neurology consult called by Dr. Kathia Lee. 82 yr old woman who presents from retirement with UTI, and neurology called for altered mental status. Consult dictated Plan; 1. CT head without contrast 2. UTI management. This is most likely metabolic encephalopathy with underlying dementia. Thank you Dr. Mikhail Lawler neurology Past Patient History - Infectious Disease Hx of Infectious Diseases: None - Tetanus Immunizations Tetanus Immunization: Unknown - Past Social History Smoking Status: Never Smoked Alcohol: None Drugs: Denies Home Situation {Lives}: Alone - CARDIAC Hx Cardia Arrhythmia: No Hx Congestive Heart Failure: Yes Hx Hypercholesterolemia: Yes Hx Hypertension: Yes Hx Mitral Valve Prolapse: No Hx Pacemaker: No Hx Peripheral Edema: No - PULMONARY Hx Asthma: Yes Hx Bronchitis: Yes Hx Chronic Obstructive Pulmonary Disease (COPD): Yes Hx Emphysema: Yes Hx Pneumonia: Yes Hx Sleep Apnea: (unsure) - NEUROLOGICAL Hx Alzheimer's Disease: No Hx Dementia: No Hx Migraine: No Hx Parkinson's Disease: No Hx Seizures: No Hx Transient Ischemic Attacks (TIA): No - HEENT Hx Cataracts: Yes (bilateral cataract extraction,august and september) - RENAL Hx Chronic Kidney Disease: Yes Hx Kidney Stones: No - ENDOCRINE/METABOLIC Hx Hyperthyroidism: No Hx Hypothyroidism: No - HEMATOLOGICAL/ONCOLOGICAL Hx Blood Disorders: No Hx Sickle Cell Disease: No - INTEGUMENTARY Hx Dermatological Problems: No Hx Basil Cell: No Hx Eczema: No Hx Melanoma: No Hx Psoriasis: No Hx Squamous Cell: No - MUSCULOSKELETAL/RHEUMATOLOGICAL Hx Arthritis: Yes Hx Falls: No (denies any fall) Hx Fractures: No Hx Osteoporosis: No - GASTROINTESTINAL Hx Crohn's Disease: No Hx Diverticulitis: No Hx Gall Bladder Disease: Yes (cholecystectomy) Hx Pancreatitis: No - GENITOURINARY/GYNECOLOGICAL Hx Sexually Transmitted Disorders: No - PSYCHIATRIC Hx Anxiety: No Hx Bipolar Disorder: No Hx Depression: No Hx Paranoia: No Hx Post Traumatic Stress Disorder: No Hx Schizophrenia: No - SURGICAL HISTORY Hx Appendectomy: Yes (unsure) Hx Cholecystectomy: Yes Hx Coronary Stent: No - ANESTHESIA Hx Anesthesia: Yes Meds Home Medications: Home Medication List Medication Instructions Recorded Confirmed Type Metoprolol Tartrate [Lopressor] 12.5 mg PO Q12 #0 tab 04/22/18 Rx Allergies/Adverse Reactions: Allergies Allergy/AdvReac Type Severity Reaction Status Date / Time shellfish derived Allergy RASH Verified 04/14/18 14:47 Sulfa (Sulfonamide Allergy ITCHING Verified 04/14/18 14:47 Antibiotics) - Medications Medications: Current Medications Acetaminophen (Tylenol 325mg Tab) 650 mg PO Q4H PRN PRN Reason: Fever >100.4 F Last Admin: 04/18/18 06:08 Dose: 650 mg Acetaminophen (Tylenol 325mg Tab) 325 mg PO Q6 PRN PRN Reason: Pain, Mild (1-3) Last Admin: 04/20/18 20:23 Dose: 325 mg Albuterol/Ipratropium (Duoneb 3 Mg/0.5 Mg (3 Ml) Ud) 3 ml IH RQ6 PRN PRN Reason: Shortness of Breath Last Admin: 04/20/18 08:18 Dose: 3 ml Albuterol/Ipratropium (Duoneb 3 Mg/0.5 Mg (3 Ml) Ud) 3 ml INH RQ4 PRN PRN Reason: Shortness of Breath Dextrose (Dextrose 50% Inj) 0 ml IV STAT PRN; Protocol PRN Reason: Hypoglycemia Protocol Dextrose (Glutose 15) 0 gm PO ONCE PRN; Protocol PRN Reason: Hypoglycemia Protocol Enoxaparin Sodium (Lovenox) 30 mg SC DAILY PAULETTE; Protocol Last Admin: 04/24/18 08:42 Dose: 30 mg Glucagon (Glucagen Diagnostic Kit) 0 mg IM STAT PRN; Protocol PRN Reason: Hypoglycemia Protocol Ertapenem 1 gm/ Sodium (Chloride) 100 mls @ 100 mls/hr IVPB DAILY PAULETTE; Protocol Last Admin: 04/24/18 13:17 Dose: 100 mls/hr Insulin Human Lispro (Humalog) 0 units SC ACHS PAULETTE; Protocol Last Admin: 04/24/18 12:24 Dose: Not Given Metoprolol Tartrate (Lopressor) 12.5 mg PO Q12 PAULETTE Last Admin: 04/24/18 08:42 Dose: 12.5 mg Nystatin (Nystatin Oral Susp) 5 ml PO QID PAULETTE Ondansetron HCl (Zofran Inj) 4 mg IVP Q6 PRN PRN Reason: Nausea/Vomiting Pantoprazole Sodium (Protonix Ec Tab) 40 mg PO DAILY PAULETTE Last Admin: 04/24/18 08:42 Dose: 40 mg Fluticasone/Salmeterol (Advair Diskus 250/50) 1 puff IH BID PAULETTE Last Admin: 04/24/18 08:41 Dose: 1 puff Results - Vital Signs Recent Vital Signs: Last Vital Signs Temp 97.6 F 04/24/18 10:07 Pulse 90 04/24/18 10:07 Resp 20 04/24/18 10:07 BP 149/83 04/24/18 10:07 Pulse Ox 99 04/24/18 10:07 - Labs Result Diagrams: 04/24/18 04:30 04/24/18 04:30 Labs: Laboratory Results - last 24 hr 04/23/18 04/23/18 04/23/18 13:00 13:00 13:20 WBC 16.0 H D RBC 3.72 L Hgb 11.4 L Hct 33.9 L MCV 91.1 MCH 30.8 MCHC 33.7 RDW 14.6 H Plt Count 372 D MPV Neut % (Auto) Lymph % (Auto) [place] % (Auto) Eos % (Auto) Baso % (Auto) Neut # (Auto) Lymph # (Auto) [place] # (Auto) Eos # (Auto) Baso # (Auto) Sodium 135 Potassium 3.0 L Chloride 96 L Carbon Dioxide 30 Anion Gap 12 BUN 16 Creatinine 1.1 Est GFR ( Amer) 57 Est GFR (Non-Af Amer) 47 POC Glucose (mg/dL) Random Glucose 129 H Calcium 9.7 Phosphorus 3.4 Magnesium 1.4 L Total Bilirubin 0.4 AST 41 H D ALT 21 Alkaline Phosphatase 84 Total Protein 7.1 Albumin 3.2 L Globulin 3.9 Albumin/Globulin Ratio 0.8 L Urine Color Yellow Urine Clarity Cloudy Urine pH 6.0 Ur Specific [place] 1.017 Urine Protein 30 Urine Glucose (UA) 50 Urine Ketones Negative Urine Blood Small Urine Nitrate Negative Urine Bilirubin Negative Urine Urobilinogen 0.2-1.0 Ur Leukocyte Esterase Mod Urine RBC (Auto) 13 H Urine Microscopic WBC 32 H Ur Squamous Epith Cells 83 H Urine Bacteria Few H 04/24/18 04/24/18 04/24/18 04:30 04:30 05:32 WBC 16.0 H RBC 3.57 L Hgb 10.9 L Hct 32.5 L MCV 91.0 MCH 30.6 MCHC 33.6 RDW 14.6 H Plt Count 371 MPV 9.1 Neut % (Auto) 69.8 Lymph % (Auto) 17.2 L [place] % (Auto) 12.5 H Eos % (Auto) 0.2 Baso % (Auto) 0.3 Neut # (Auto) 11.2 H Lymph # (Auto) 2.7 [place] # (Auto) 2.0 H Eos # (Auto) 0.0 Baso # (Auto) 0.1 Sodium 136 Potassium 3.8 Chloride 99 Carbon Dioxide 29 Anion Gap 12 BUN 17 Creatinine 1.1 Est GFR ( Amer) 57 Est GFR (Non-Af Amer) 47 POC Glucose (mg/dL) 109 Random Glucose 121 H Calcium 9.9 Phosphorus Magnesium 1.9 Total Bilirubin 0.4 AST 40 H ALT 16 Alkaline Phosphatase 82 Total Protein 6.9 Albumin 3.1 L Globulin 3.9 Albumin/Globulin Ratio 0.8 L Urine Color Urine Clarity Urine pH Ur Specific [place] Urine Protein Urine Glucose (UA) Urine Ketones Urine Blood Urine Nitrate Urine Bilirubin Urine Urobilinogen Ur Leukocyte Esterase Urine RBC (Auto) Urine Microscopic WBC Ur Squamous Epith Cells Urine Bacteria 04/24/18 11:07 WBC RBC Hgb Hct MCV MCH MCHC RDW Plt Count MPV Neut % (Auto) Lymph % (Auto) [place] % (Auto) Eos % (Auto) Baso % (Auto) Neut # (Auto) Lymph # (Auto) [place] # (Auto) Eos # (Auto) Baso # (Auto) Sodium Potassium Chloride Carbon Dioxide Anion Gap BUN Creatinine Est GFR ( Amer) Est GFR (Non-Af Amer) POC Glucose (mg/dL) 109 Random Glucose Calcium Phosphorus Magnesium Total Bilirubin AST ALT Alkaline Phosphatase Total Protein Albumin Globulin Albumin/Globulin Ratio Urine Color Urine Clarity Urine pH Ur Specific [place] Urine Protein Urine Glucose (UA) Urine Ketones Urine Blood Urine Nitrate Urine Bilirubin Urine Urobilinogen Ur Leukocyte Esterase Urine RBC (Auto) Urine Microscopic WBC Ur Squamous Epith Cells Urine Bacteria
[2018-04-24] MEDS: Nystatin 100,000 Units/ml Oral Susp 5 ml UD PO SCH ×2 (16:31→21:10)
--- NOTE | 2018-04-25 00:19 | CON ---
DATE: 04/24/2017 Neurology consult called by Dr. Kathia Lee. HISTORY OF PRESENT ILLNESS: Ms. Ramirez is an 82-year-old woman who [facility]. She has a past medical history of hypertension, diabetes, gout, CKD, asthma with COPD. She was admitted on that day with dehydration with some confusion, UTI secondary to Proteus mirabilis. The patient has been here for several days, and her mental status has improved minimally. Initially, she was confused and agitated but now she is improved and is not speaking as much as she normally does. REVIEW OF SYSTEMS: It is not possible because of the patient's mental status. On interview and exam today, the patient is staring straight ahead and although she does answer questions. She is not forthcoming about her review of systems. PHYSICAL EXAMINATION: GENERAL: She is alert, awake, and oriented x2. The date is incorrect. She can name and repeat with great coaxing. There is no dysarthria. There is no aphagia. HEENT: She is edentulous. Pupils are equal, round, and reactive to light. Extraocular movements are intact. There is no facial asymmetry. NEUROLOGIC: Motor tone is increased in all limbs. Strength is equal bilaterally. She lifts up her arm. Inspector [employer]ugs is 5/5. Sensory is intact to fine touch and pain in all dermatomes. Gait was not tested at the patient's request. Reflexes are +2 in upper and lower limbs bilaterally. There is no clonus. LABORATORY DATA: Labs show white count is 16 which is increasing from 12.2 on admission, hemoglobin is 10.9, hematocrit is 30.5, and platelets are 371. Sodium 135, potassium 3, chloride 96, BUN and creatinine are 17 and 1.1. AST is high at 40. Urine shows 13 rbc's, 13 white count and quite a few bacteria. CAT scan of the head was not done as of yet. MEDICATIONS: The patient is on insulin, metoprolol, nystatin, ceftriaxone, and fluticasone. IMPRESSION: This is an 82-year-old woman with most likely underlying mild dementia and toxic metabolic encephalopathy secondary to urinary tract infection which appears to be sensitive to current medications. PLAN: 1. CAT scan of the head without contrast. 2. Continue medical treatment of UTI. Thank you for this interesting consultation. Tha Elizondo MD
[2018-04-25 06:06] LABS: BASO # 0.1 K/uL (0.0-0.2); BASO % 0.5 % (0.0-2.0); EOS # 0.1 K/uL (0.0-0.7); EOS % 0.5 % (0.0-4.0); HEMOGLOBIN 10.9 g/dL (12.0-16.0); LYMPH # 2.8 K/uL (1.0-4.3); LYMPH % 19.9 % (20.0-40.0); MEAN CELL VOLUME 91.5 fl (81.0-99.0); MEAN CORPUSCULAR HEMOGLOBIN 30.7 pg (27.0-31.0); MEAN CORPUSCULAR HGB CONC 33.6 g/dL (33.0-37.0); MEAN PLATELET VOLUME 9.2 fl (7.2-11.7); MONO # 1.7 K/uL (0.0-0.8); MONO % 12.4 % (0.0-10.0); NEUT # 9.3 K/uL (1.8-7.0); NEUT % 66.7 % (50.0-75.0); RBC 3.56 Mil/uL (3.80-5.20); RED CELL DISTRIBUTION WIDTH 14.4 % (11.5-14.5)
[2018-04-25] MEDS: Insulin Lispro (humaLOG) 100 Units/ml Inj SC SCH ×3 (07:27→16:44)
[2018-04-25] MEDS: Pantoprazole 40 mg EC Tab PO SCH (09:20)
[2018-04-25] MEDS: Enoxaparin 30 mg Syringe SC SCH (09:21)
[2018-04-25] MEDS: Fluticasone-Salmeterol 250-50mcg Diskus IH SCH ×2 (09:22→16:45)
[2018-04-25] MEDS: Nystatin 100,000 Units/ml Oral Susp 5 ml UD PO SCH ×4 (09:23→21:00)
[2018-04-25 20:04] VITALS: TEMP 97.6
[2018-04-26] MEDS: Insulin Lispro (humaLOG) 100 Units/ml Inj SC SCH ×3 (00:12→12:18)
[2018-04-26 07:46] VITALS: BP 151/77; PULSE 92; RESP 20; O2SAT 97
[2018-04-26] MEDS: Fluticasone-Salmeterol 250-50mcg Diskus IH SCH (08:28)
[2018-04-26] MEDS: Enoxaparin 30 mg Syringe SC SCH (08:29)
[2018-04-26] MEDS: Nystatin 100,000 Units/ml Oral Susp 5 ml UD PO SCH ×2 (08:29→12:24)
[2018-04-26] MEDS: Pantoprazole 40 mg EC Tab PO SCH (08:45)
[2018-04-26 10:09] VITALS: BMI 27.3
--- NOTE | 2018-04-26 10:53 | CP.PCM.PN ---
Subjective - Date & Time of Evaluation Date of Evaluation: 04/26/18 Time of Evaluation: 10:51 - Subjective Subjective: Neuro Follow-Up Note: Mrs. Ramirez was evaluated this morning in TCU. She appears comfortable and doesn't offer any complaints. ROS is limited as the pt states she does not "want to be bothered" and requests that CHIEF ESTIMATOR leave her alone. Chart reviewed. Objective - Vital Signs/Intake and Output Vital Signs (last 24 hours): Temp Pulse Resp BP Pulse Ox 97.6 F 92 H 20 151/77 H 97 04/26/18 07:45 04/26/18 08:28 04/26/18 07:45 04/26/18 08:28 04/26/18 07:45 - Medications Medications: Current Medications Acetaminophen (Tylenol 325mg Tab) 650 mg PO Q4H PRN PRN Reason: Fever >100.4 F Last Admin: 04/18/18 06:08 Dose: 650 mg Acetaminophen (Tylenol 325mg Tab) 325 mg PO Q6 PRN PRN Reason: Pain, Mild (1-3) Last Admin: 04/20/18 20:23 Dose: 325 mg Albuterol/Ipratropium (Duoneb 3 Mg/0.5 Mg (3 Ml) Ud) 3 ml IH RQ6 PRN PRN Reason: Shortness of Breath Last Admin: 04/20/18 08:18 Dose: 3 ml Albuterol/Ipratropium (Duoneb 3 Mg/0.5 Mg (3 Ml) Ud) 3 ml INH RQ4 PRN PRN Reason: Shortness of Breath Dextrose (Dextrose 50% Inj) 0 ml IV STAT PRN; Protocol PRN Reason: Hypoglycemia Protocol Dextrose (Glutose 15) 0 gm PO ONCE PRN; Protocol PRN Reason: Hypoglycemia Protocol Enoxaparin Sodium (Lovenox) 30 mg SC DAILY PAULETTE; Protocol Last Admin: 04/26/18 08:29 Dose: 30 mg Glucagon (Glucagen Diagnostic Kit) 0 mg IM STAT PRN; Protocol PRN Reason: Hypoglycemia Protocol Ertapenem 1 gm/ Sodium (Chloride) 100 mls @ 100 mls/hr IVPB DAILY PAULETTE; Protocol Last Admin: 04/26/18 08:30 Dose: 100 mls/hr Insulin Human Lispro (Humalog) 0 units SC ACHS PAULETTE; Protocol Last Admin: 04/26/18 06:47 Dose: Not Given Metoprolol Tartrate (Lopressor) 12.5 mg PO Q12 COUNTS INCLUDE 234 BEDS AT THE [facility] Last Admin: 04/26/18 08:28 Dose: 12.5 mg Nystatin (Nystatin Oral Susp) 5 ml PO QID COUNTS INCLUDE 234 BEDS AT THE [facility] Last Admin: 04/26/18 08:29 Dose: 5 ml Ondansetron HCl (Zofran Inj) 4 mg IVP Q6 PRN PRN Reason: Nausea/Vomiting Pantoprazole Sodium (Protonix Ec Tab) 40 mg PO DAILY COUNTS INCLUDE 234 BEDS AT THE [facility] Last Admin: 04/25/18 09:20 Dose: 40 mg Fluticasone/Salmeterol (Advair Diskus 250/50) 1 puff IH BID COUNTS INCLUDE 234 BEDS AT THE [facility] Last Admin: 04/26/18 08:28 Dose: 1 puff - Labs Labs: 04/25/18 04:30 04/24/18 04:30 - Constitutional Appears: Non-toxic, No Acute Distress, Confused (h/o dementia) - Head Exam Head Exam: NORMAL INSPECTION, NORMOCEPHALIC - Eye Exam Eye Exam: EOMI, Normal appearance - ENT Exam ENT Exam: Mucous Membranes Moist - Neck Exam Neck Exam: Normal Inspection - Respiratory Exam Respiratory Exam: NORMAL BREATHING PATTERN - Extremities Exam Additional comments: Able to move extremities; generalized weakness noted 2/2 deconditioning. - Neurological Exam Neurological Exam: Altered, Awake, CN II-XII Intact Additional comments: Speech clear Able to move extremities; generalized weakness noted 2/2 deconditioning. No tremors noted Neuro exam limited 2/2 pt's refusal to participate - Psychiatric Exam Additional comments: confused h/o dementia - Skin Skin Exam: Normal Color Assessment and Plan (1) Altered mental status Assessment & Plan: Imaging reviewed: -CT Head (04/24/18): No bleed. Chronic microvascular ischemic changes. -Continue to treat underlying cause for pt's AMS and infectious process. -Continue therapy as tolerated. -Continue fall precautions. -Notify neuro if any acute changes in condition. Otherwise, no further neuro recommendations. Reconsult prn. Thank you for allowing us to participate in this pt's care. Kenzie Clay, SILVIA, CHIEF ESTIMATOR Case discussed with Dr. Elizondo Status: Resolved
--- NOTE | 2018-04-26 11:26 | CP.PCM.DIS ---
Provider - Provider Date of Admission: 04/14/18 14:51 Attending physician: Kathia Lee DO Consults: 04/14/18 19:42 Case Management Referral Routine Comment: Physician Instructions: Reason For Exam: Reason for Referral: Discharge Planning 04/14/18 19:43 Wound Care [Nursing Referral for Wound Care] Routine Comment: Physician Instructions: Reason For Exam: new admission; sacral redness and excoriation 04/14/18 19:46 Pastoral Care Referral Routine Comment: Physician Instructions: Reason For Exam: new admission; advance directives; seen by 04/19/18 11:49 Psychiatry Consult Routine Comment: Consulting Provider: Vale Alvarez Consulting Physician: Vale Alvarez Reason for Consult: alter mental status geropsych eval 04/19/18 12:27 Psychology Consult Routine Comment: Consulting Provider: Sara Palomo Consulting Physician: Sara Palomo Reason for Consult: Evaluate neurocognitive function 04/23/18 11:15 Neurology Consult Routine Comment: Consulting Provider: Tha Elizondo Consulting Physician: Tha Elizondo Reason for Consult: neuro eval 04/23/18 15:29 Infectious Disease Consult Routine Comment: Consulting Provider: Merari Rees Consulting Physician: Merari Rees Reason for Consult: recurrent UTI, recently treated with zosyn Time Spent in preparation of Discharge (in minutes): 25 Diagnosis - Discharge Diagnosis (1) Altered mental status Status: Resolved (2) UTI (urinary tract infection) Status: Acute Comment: urine culture grew Proteus. needed another 7 days of IV Ertapenem (3) HTN (hypertension) Status: Chronic Comment: BP stable. continue Metoprolol (4) COPD (chronic obstructive pulmonary disease) Status: Chronic Comment: stable. continue [facility] Course - Lab Results Lab Results: Micro Results 04/24/18 14:45 Blood-Venous Blood Culture - Preliminary NO GROWTH AFTER 24 HOURS 04/24/18 14:35 Blood-Venous Blood Culture - Preliminary NO GROWTH AFTER 24 HOURS 04/23/18 13:20 Urine,Catheterized Urine Culture - Final No Growth (<1,000 CFU/ML) Most Recent Lab Values WBC 14.0 K/uL (4.8-10.8) H 04/25/18 04:30 RBC 3.56 Mil/uL (3.80-5.20) L 04/25/18 04:30 Hgb 10.9 g/dL (12.0-16.0) L 04/25/18 04:30 Hct 32.6 % (34.0-47.0) L 04/25/18 04:30 MCV 91.5 fl (81.0-99.0) 04/25/18 04:30 MCH 30.7 pg (27.0-31.0) 04/25/18 04:30 MCHC 33.6 g/dL (33.0-37.0) 04/25/18 04:30 RDW 14.4 % (11.5-14.5) 04/25/18 04:30 Plt Count 407 K/uL (130-400) H 04/25/18 04:30 MPV 9.2 fl (7.2-11.7) 04/25/18 04:30 Neut % (Auto) 66.7 % (50.0-75.0) 04/25/18 04:30 Lymph % (Auto) 19.9 % (20.0-40.0) L 04/25/18 04:30 [place] % (Auto) 12.4 % (0.0-10.0) H 04/25/18 04:30 Eos % (Auto) 0.5 % (0.0-4.0) 04/25/18 04:30 Baso % (Auto) 0.5 % (0.0-2.0) 04/25/18 04:30 Neut # (Auto) 9.3 K/uL (1.8-7.0) H 04/25/18 04:30 Lymph # (Auto) 2.8 K/uL (1.0-4.3) 04/25/18 04:30 [place] # (Auto) 1.7 K/uL (0.0-0.8) H 04/25/18 04:30 Eos # (Auto) 0.1 K/uL (0.0-0.7) 04/25/18 04:30 Baso # (Auto) 0.1 K/uL (0.0-0.2) 04/25/18 04:30 Sodium 136 mmol/l (132-148) 04/24/18 04:30 Potassium 3.8 MMOL/L (3.6-5.0) 04/24/18 04:30 Chloride 99 mmol/L (98-107) 04/24/18 04:30 Carbon Dioxide 29 mmol/L (22-30) 04/24/18 04:30 Anion Gap 12 (10-20) 04/24/18 04:30 BUN 17 mg/dl (7-17) 04/24/18 04:30 Creatinine 1.1 mg/dl (0.7-1.2) 04/24/18 04:30 Est GFR ( Amer) 57 04/24/18 04:30 Est GFR (Non-Af Amer) 47 04/24/18 04:30 POC Glucose (mg/dL) 117 mg/dL (65-110) H 04/26/18 05:16 Random Glucose 121 mg/dL (65-105) H 04/24/18 04:30 Hemoglobin A1c 6.3 % (4.2-6.5) 04/15/18 18:15 Calcium 9.9 mg/dL (8.4-10.2) 04/24/18 04:30 Phosphorus 3.4 mg/dl (2.5-4.5) 04/23/18 13:00 Magnesium 1.9 MG/DL (1.6-2.3) 04/24/18 04:30 Total Bilirubin 0.4 mg/dl (0.2-1.3) 04/24/18 04:30 AST 40 U/L (14-36) H 04/24/18 04:30 ALT 16 U/L (9-52) 04/24/18 04:30 Alkaline Phosphatase 82 U/L (38-126) 04/24/18 04:30 Total Protein 6.9 G/DL (6.3-8.2) 04/24/18 04:30 Albumin 3.1 g/dL (3.5-5.0) L 04/24/18 04:30 Globulin 3.9 gm/dL (2.2-3.9) 04/24/18 04:30 Albumin/Globulin Ratio 0.8 (1.0-2.1) L 04/24/18 04:30 Urine Color Yellow (YELLOW) 04/23/18 13:20 Urine Clarity Cloudy (Clear) 04/23/18 13:20 Urine pH 6.0 (5.0-8.0) 04/23/18 13:20 Ur Specific [place] 1.017 (1.003-1.030) 04/23/18 13:20 Urine Protein 30 mg/dL (NEGATIVE) 04/23/18 13:20 Urine Glucose (UA) 50 mg/dL (NEGATIVE) 04/23/18 13:20 Urine Ketones Negative mg/dL (NEGATIVE) 04/23/18 13:20 Urine Blood Small (NEGATIVE) 04/23/18 13:20 Urine Nitrate Negative (NEGATIVE) 04/23/18 13:20 Urine Bilirubin Negative (NEGATIVE) 04/23/18 13:20 Urine Urobilinogen 0.2-1.0 mg/dL (0.2-1.0) 04/23/18 13:20 Ur Leukocyte Esterase Mod [place]/uL (Negative) 04/23/18 13:20 Urine RBC (Auto) 13 /hpf (0-3) H 04/23/18 13:20 Urine Microscopic WBC 32 /hpf (0-5) H 04/23/18 13:20 Ur Squamous Epith Cells 83 /hpf (0-5) H 04/23/18 13:20 Urine Bacteria Few (<OCC) H 04/23/18 13:20 - Hospital Course Hospital Course: 82 yo female with history of COPD/Asthma, DM2, HTN, Gout and GERD was admitted due to AMS and dehydration. She was found to have UTI and was found to have Proteus in the urine. She was started initially on Rocephin and was transferred to TCU for continuation of IV antibiotics. Patient continued to have leukocytosis and was later switched to Ertapenem as per recommendation from ID consult. Patient is doing better but needed further therapy in [facility] where she would continue Ertapenem for another 7 days. Discharge Exam - Head Exam Head Exam: ATRAUMATIC - Eye Exam Eye Exam: absent: Scleral icterus - ENT Exam ENT Exam: Mucous Membranes Moist - Respiratory Exam Respiratory Exam: absent: Rales, Rhonchi, Wheezes, Respiratory Distress - Cardiovascular Exam Cardiovascular Exam: REGULAR RHYTHM, +S1, +S2 - GI/Abdominal Exam GI & Abdominal Exam: Soft. absent: Tenderness - Rectal Exam Rectal Exam: Deferred - Neurological Exam Neurological exam: Alert, Oriented x3 - Psychiatric Exam Psychiatric exam: Normal Affect - Skin Skin Exam: Dry, Intact Discharge Plan - Discharge Medications Prescriptions: Ertapenem [Invanz] 1 gm IJ DAILY #7 pds - Follow Up Plan Condition: GOOD Disposition: TRANSF TO SNF
== END 2018-04-26 15:30 | DRG 689 ==
LOC: H.TCU 14:51
PROVIDERS: ADMIT Student in an Organized Health Care Education/Training Program; ATTEND Student in an Organized Health Care Education/Training Program
PROC: 3E03329 Introduction of Other Anti-infective into Peripheral Vein, Percutaneous Approach (ICD-10-PCS; principal; 2018-04-14)
PROC: F07Z9FZ Gait Training/Functional Ambulation Treatment using Assistive, Adaptive, Supportive or Protective Equipment (ICD-10-PCS; 2018-04-14)
PROC: F08Z4FZ Home Management Treatment using Assistive, Adaptive, Supportive or Protective Equipment (ICD-10-PCS; 2018-04-14)
DX: N12 Tubulo-interstitial nephritis, not specified as acute or chronic (principal); G92 Toxic encephalopathy; I13.0 Hypertensive heart and chronic kidney disease with heart failure and stage 1 through stage 4 chronic kidney disease, or unspecified chronic kidney disease; F05 Delirium due to known physiological condition; B96.4 Proteus (mirabilis) (morganii) as the cause of diseases classified elsewhere; E87.6 Hypokalemia; N18.3 Chronic kidney disease, stage 3 (moderate); Z16.19 Resistance to other specified beta lactam antibiotics; E11.22 Type 2 diabetes mellitus with diabetic chronic kidney disease; I50.9 Heart failure, unspecified; J44.9 Chronic obstructive pulmonary disease, unspecified; F03.90 Unspecified dementia, unspecified severity, without behavioral disturbance, psychotic disturbance, mood disturbance, and anxiety; K21.9 Gastro-esophageal reflux disease without esophagitis; M10.9 Gout, unspecified; E78.00 Pure hypercholesterolemia, unspecified; Z66 Do not resuscitate; Z87.01 Personal history of pneumonia (recurrent); Z88.2 Allergy status to sulfonamides; Z91.013 Allergy to seafood